=== PATIENT | female | born 1930 | race Caucasian/White ===

== ENCOUNTER → 2016-06-25 | Outpatient (CLI) | payer BC ==
[~2016-06-25] MED LIST: ALPR-411 PO; AMLO-110 PO; ASPI81TA28 PO; ATOR10TA82 PO; CYAN500T13 SL; FERROUS PO; GLC500 PO; HYDR-5688 PO; LEVO50TA6 PO; METO-478 PO; MIRT30TA3 PO; MULT-506 PO; PRT40 PO; PSYL48.59; ROPI2TAB6 PO; SERT-234 PO; TEMA30CA4 PO
[2016-06-25 19:17] LABS: BLOOD UREA NITROGEN 26 mg/dl (7-18); BUN/CREATININE RATIO 41.5 (10-20); CALCIUM 9.5 mg/dl (8.5-10.1); CARBON DIOXIDE 28 mmol/L (21-32); CHLORIDE 105 mmol/L (98-107); CREATININE 0.62 mg/dl (0.60-1.20); GLUCOSE 143 mg/dl (70-99); POTASSIUM 4.5 mmol/L (3.5-5.1); SODIUM 140 mmol/L (136-145)
[2016-06-25 19:28] LABS: PHOSPHORUS 3.8 mg/dl (2.5-4.9)
[2016-06-25 20:21] LABS: ESTIMATED AVERAGE GLUCOSE 143 mg/dl; HA1C FLAG Normal (Normal)
== END | disposition home or self-care (01) ==
LOC: C.LABMFLN 11:32
PROVIDERS: ATTEND Family Medicine
DX: E03.9 Hypothyroidism, unspecified (principal); E11.9 Type 2 diabetes mellitus without complications

== ENCOUNTER → 2017-01-17 | Outpatient (CLI) | payer BC ==
[2017-01-17 17:59] LABS: BASO % 0.2 %; BASO ABS # 0.01 K/uL (0-0.2); COMPLETE YES; EOS % 1.4 %; IG% 0.2 %; LYMPH % 25.1 %; MEAN CELL VOLUME 89.4 fL (80-100); MEAN CORPUSCULAR HEMOGLOBIN 27.3 pg (25-34); MEAN CORPUSCULAR HGB CONC 30.5 g/dl (32-36); MONO % 11.8 %; NEUT % 61.3 %; PLATELET COUNT 184 K/uL (130-400); RED BLOOD COUNT 4.36 M/uL (4.2-5.4); WHITE BLOOD COUNT 4.39 K/uL (4.8-10.8)
[2017-01-17 18:30] LABS: BLOOD UREA NITROGEN 16 mg/dl (7-18); BUN/CREATININE RATIO 27.3 (10-20); CALCIUM 9.4 mg/dl (8.5-10.1); CARBON DIOXIDE 31 mmol/L (21-32); CHLORIDE 106 mmol/L (98-107); CREATININE 0.59 mg/dl (0.60-1.20); GLUCOSE 93 mg/dl (70-99); POTASSIUM 3.9 mmol/L (3.5-5.1); SODIUM 138 mmol/L (136-145)
[2017-01-17 18:35] LABS: ALKALINE PHOSPHATASE 113 U/L (45-117); ALT/SGPT 19 U/L (12-78); AST/SGOT 17 U/L (15-37); CHOLESTEROL 101 mg/dl (0-200); CHOLESTEROL/HDL RATIO 1.8; HDL CHOLESTEROL 57 mg/dl; LDL CHOLESTEROL CALCULATED 19 mg/dl; TRIGLYCERIDES 125 mg/dl (0-150); VERY LOW DENSITY LIPOPROT CALC 25 mg/dl
[2017-01-18 06:06] LABS: ESTIMATED AVERAGE GLUCOSE 148 mg/dl; HA1C FLAG Normal (Normal)
== END | disposition home or self-care (01) ==
LOC: C.LABMFLN 12:02
PROVIDERS: ATTEND Family Medicine
DX: E11.9 Type 2 diabetes mellitus without complications (principal); E78.5 Hyperlipidemia, unspecified

== ENCOUNTER → 2017-04-18 | Outpatient (CLI) | payer BC ==
[~2017-04-18] MED LIST changes: +CYAN500T13 PO; -CYAN500T13 SL; +GLC/500 PO; +HYDR-4079 PO; +HYDR-4383 PO; -HYDR-5688 PO; -PSYL48.59; +PSYL48.59 PO; +SENNTAB13 PO
[2017-04-18 18:07] LABS: BLOOD UREA NITROGEN 25 mg/dl (7-18); CALCIUM 9.5 mg/dl (8.5-10.1); CARBON DIOXIDE 31 mmol/L (21-32); CREATININE 0.67 mg/dl (0.60-1.20); GLUCOSE 136 mg/dl (70-99); POTASSIUM 4.5 mmol/L (3.5-5.1); SODIUM 137 mmol/L (136-145)
[2017-04-18 18:13] LABS: CREATININE RANDOM URINE 81.2 mg/dl
[2017-04-18 18:18] LABS: PHOSPHORUS 3.5 mg/dl (2.5-4.9)
[2017-04-19 06:48] LABS: HEMOGLOBIN A1C 6.8 % (4.5-5.6)
== END | disposition home or self-care (01) ==
LOC: C.LABMFLN 15:55
PROVIDERS: ATTEND Family Medicine
DX: E11.9 Type 2 diabetes mellitus without complications (principal); E03.9 Hypothyroidism, unspecified

== ENCOUNTER → 2017-06-06 | Outpatient (CLI) | payer BC ==
[~2017-06-06] MED LIST changes: -GLC500 PO; -HYDR-4079 PO
--- NOTE | 2017-06-06 15:27 | DIAGNOSTIC IMAGING REPORT ---
CHEST-PA,LAT AND OBLIQUE VIEWS CLINICAL HISTORY: 86 years-old Female presenting with ABNORMAL CHEST XRAY. TECHNIQUE: PA and bilateral oblique views of the chest were obtained. COMPARISON: 05/24/2017. FINDINGS: Atherosclerosis of aortic arch. Cardiac silhouette enlarged. The site of clinical concern on the prior radiograph in the right midlung correlates with a rib shadow. No focal opacity. No large effusion or pneumothorax. Postsurgical changes of reverse total right shoulder arthroplasty. Slightly exaggerated thoracic kyphosis with suggestion of osteopenia. Post procedure changes of kyphoplasty suggested at the thoracolumbar region. Additionally, a compression deformity of a midthoracic vertebral bodies evident. This is unchanged from prior. Hiatal hernia. Cholecystectomy clips may be present. IMPRESSION: 1. The apparent right mid lung opacity likely correlates with a rib shadow. No convincing evidence of a focal infiltrate or nodule allowing for the sensitivity of radiography. 2. No convincing evidence of acute cardiopulmonary disease. 3. Osteopenia with compression deformity of a midthoracic vertebral body, unchanged. 4. Hiatal hernia. Electronically signed by: Reese Madden M.D. 06/06/2017 3:26 PM Dictated Date/Time: 06/06/2017 3:24 PM
--- NOTE | 2017-06-06 15:57 | DIAGNOSTIC IMAGING REPORT ---
CAROTID DOPPLER NECK ART CLINICAL HISTORY: 86 years-old Female presenting with VERTEBRAL ARTERY STENOSIS. TECHNIQUE: Real-time grayscale and color and spectral Doppler ultrasound imaging of the bilateral carotid arteries was performed. NASCET criteria was used in evaluating this study. COMPARISON: None. FINDINGS: Right: Common carotid: Atherosclerosis at the carotid bulb. Peak systolic velocity 61 cm/s. Internal carotid artery: Patent. Peak systolic velocity 66 cm/s. Systolic ratio: 1.1. External carotid artery: Patent. Peak systolic velocity 80 cm/s. Left: Common carotid: Patent. Peak systolic velocity 85 cm/s. Internal carotid artery: Patent. Peak systolic velocity 72 cm/s. Systolic ratio: 0.8. External carotid artery: Patent. Peak systolic velocity 68 cm/s. Bilateral antegrade flow within the vertebral arteries. No elevated peak systolic velocity or abnormal waveforms to suggest stenosis. Reference ranges: Stenosis measurements are compared to reference velocity parameters. Primary parameters: ICA peak systolic velocity (PSV) < 125 cm/s normal or indicating < 50% stenosis; ICA PSV 125-230 cm/s equivalent to 50-69% stenosis; ICA PSV > 230 cm/s equivalent to greater than or equal to 70% stenosis. Additional parameters: ICA PSV to common carotid artery PSV ratio < 2 normal or < 50% stenosis; 2-4 equates to 50-69% stenosis, > 4 equates to greater than or equal to 70% stenosis. Normal ICA end-diastolic velocity less than 40. Blood pressure: Not performed. IMPRESSION: 1. No hemodynamically significant stenosis seen within the carotid arteries. 2. No evidence of stenosis within the vertebral arteries. Electronically signed by: Reese Madden M.D. 06/06/2017 3:55 PM Dictated Date/Time: 06/06/2017 3:54 PM
--- NOTE | 2017-06-06 18:06 | ECHOCARDIOGRAM REPORT ---
*NOTICE TO RECEIVING [employer] This information is strictly Confidential and protected under [place] law. [place] law prohibits you from making any further disclosure of this information unless further disclosure is expressly permitted by the written consent of the person to whom it pertains or is authorized by law. A general authorization for the release of medical or other information is not sufficient for this purpose. Hospital accepts no responsibility if the information is made available to any other person, INCLUDING THE PATIENT. Interpretation Summary * Name: TABITHA MILLER Study Date: 06/06/2017 03:31 PM BP: 122/74 mmHg * Patient Location: [facility] HR: 71 * : 1930 (M/d/yyyy) Gender: Female Height: 62 in * Age: 86 yrs Ethnicity: [place] Weight: 190 lb * Ordering Physician: Shaunna West * Referring Physician: Shaunna West * Performed By: Rhona Ken [facility] * * Reason For Study: VERETEBRAL ARTERY STENOSIS * BSA: 1.9 m2 * -- Conclusions -- * 1. Normal left ventricular size and systolic function. Estimated EF 55-60%. No regional wall motion abnormalities. Septal motion consistent with bundle-branch block. Mild concentric left ventricular hypertrophy. There is severe asymmetric hypertrophy of the septal base. Type 1 diastolic dysfunction. * 2. The left atrium is mildly dilated. * 3. There is mild mitral regurgitation. * 4. Normal estimated right ventricular systolic pressure. * 5. No prior study available for comparison. Procedure Details * A complete two-dimensional transthoracic echocardiogram was performed (2D, M-mode, Doppler and color flow Doppler). Left Ventricle * Normal left ventricular size and systolic function. Estimated EF 55-60%. No regional wall motion abnormalities. Septal motion consistent with bundle-branch block. Mild concentric left ventricular hypertrophy. Type 1 diastolic dysfunction. Right Ventricle * Borderline right ventricular enlargement. Atria * The left atrium is mildly dilated. * Right atrial size is normal. * There is no evidence of atrial septal defect, but resolution does not allow assessment for a patent foramen ovale. * Hyper mobile inter atrial septum. Mitral Valve * There is mild mitral annular calcification. * There is no mitral valve stenosis. * There is mild mitral regurgitation. Tricuspid Valve * The tricuspid valve is not well visualized, but is grossly normal. * There is no tricuspid stenosis. * There is trace tricuspid regurgitation. Aortic Valve * The aortic valve is trileaflet. * No hemodynamically significant valvular aortic stenosis. * No aortic regurgitation is present. Pulmonic Valve * The pulmonary valve is inadequately visualized, but the Doppler data is adequate for interpretation. * There is no pulmonic valvular stenosis. * There is no significant pulmonary regurgitation. Great Vessels * The aortic root is normal size. * Ascending aorta of normal dimension Pericardium/Pleural * There is no pericardial effusion. Great Vessels * Normal inferior vena cava size and collapsability with sniff indicates a normal right atrial pressure of 3 mmHg MMode 2D Measurements and Calculations IVSd 1.2 cm LVIDd 3.5 cm LVIDs 2.3 cm LVPWd 1.2 cm IVS/LVPW 1.0 FS 34.2 % EDV(Teich) 50.3 ml ESV(Teich) 18.0 ml EF(Teich) 64.3 % EDV(cubed) 42.2 ml ESV(cubed) 12.0 ml EF(cubed) 71.5 % LV mass(C)d 137.6 grams LV mass(C)dI 73.6 grams/m\S\2 SV(Teich) 32.3 ml SI(Teich) 17.3 ml/m\S\2 SV(cubed) 30.2 ml SI(cubed) 16.1 ml/m\S\2 Ao root diam 3.0 cm Ao root area 6.9 cm\S\2 ACS 1.8 cm LA dimension 4.3 cm asc Aorta Diam 3.0 cm LA/Ao 1.5 LVOT diam 1.9 cm LVOT area 2.9 cm\S\2 LVAd ap4 33.3 cm\S\2 LVLd ap4 8.1 cm EDV(MOD-sp4) 109.9 ml EDV(sp4-el) 116.5 ml LVAs ap4 18.3 cm\S\2 LVLs ap4 7.1 cm ESV(MOD-sp4) 40.4 ml ESV(sp4-el) 40.2 ml EF(MOD-sp4) 63.2 % EF(sp4-el) 65.5 % LVAd ap2 28.2 cm\S\2 LVLd ap2 7.4 cm EDV(MOD-sp2) 86.0 ml EDV(sp2-el) 90.5 ml LVAs ap2 19.1 cm\S\2 LVLs ap2 6.8 cm ESV(MOD-sp2) 45.4 ml ESV(sp2-el) 45.2 ml EF(MOD-sp2) 47.3 % EF(sp2-el) 50.0 % LVLd %diff -8.63 % EDV(MOD-bp) 100.8 ml LVLs %diff -3.57 % ESV(MOD-bp) 41.8 ml EF(MOD-bp) 58.5 % SV(MOD-sp4) 69.5 ml SI(MOD-sp4) 37.1 ml/m\S\2 SV(MOD-sp2) 40.7 ml SI(MOD-sp2) 21.7 ml/m\S\2 SV(MOD-bp) 59.0 ml SI(MOD-bp) 31.6 ml/m\S\2 SV(sp4-el) 76.3 ml SI(sp4-el) 40.8 ml/m\S\2 SV(sp2-el) 45.3 ml SI(sp2-el) 24.2 ml/m\S\2 Doppler Measurements and Calculations MV E max ayo 73.3 cm/sec MV A max ayo 112.7 cm/sec MV E/A 0.65 MV P1/2t max ayo 74.2 cm/sec MV P1/2t 115.2 msec MVA(P1/2t) 1.9 cm\S\2 MV dec slope 188.6 cm/sec\S\2 MV dec time 0.30 sec Ao V2 max 121.7 cm/sec Ao max PG 5.9 mmHg Ao max PG (full) 3.1 mmHg JONNA(V,A) 2.0 cm\S\2 JONAN(V,D) 2.0 cm\S\2 LV V1 max PG 2.9 mmHg LV V1 max 84.7 cm/sec TR max ayo 228.6 cm/sec RVSP(TR) 23.9 mmHg RAP systole 3.0 mmHg
== END | disposition home or self-care (01) ==
LOC: C.ULTR 13:58
PROVIDERS: ATTEND Family Medicine
DX: R93.8 Abnormal findings on diagnostic imaging of other specified body structures (principal); R01.1 Cardiac murmur, unspecified; I65.09 Occlusion and stenosis of unspecified vertebral artery; M85.88 Other specified disorders of bone density and structure, other site; K44.9 Diaphragmatic hernia without obstruction or gangrene

== ENCOUNTER 2017-06-12 06:40 | Inpatient (IN) | payer BC, OTHER ==
[2017-05-24 13:27] VITALS: BMI 33.0
--- NOTE | 2017-05-24 14:09 | PAT Medication Instructions ---
Service Date May 24, 2017. Current Home Medication List Alprazolam (Xanax), 0.5 MG PO BID PRN for PRN Amlodipine (Norvasc), 5 MG PO QAM Aspirin (Aspirin Ec), 81 MG PO QAM Atorvastatin (Lipitor), 1 TAB PO QAM Cyanocobalamin (Vitamin B12 500MCG), 5,000 MCG PO QAM Hydrocodone/Acetaminophen ([place] 10/325 Tab), 1 TAB PO TID PRN for Pain Levothyroxine Sodium (Levothyroxine Sodium), 1 TAB PO QAM Metformin Hcl (Glucophage), 500 MG PO BID Metoprolol Succinate (Toprol Xl), 25 MG PO QAM Mirtazapine (Remeron), 30 MG PO HS Multivitamin (Multivitamin), 1 TAB PO QAM Pantoprazole (Pantoprazole Sodium), 40 MG PO QAM Psyllium (Metamucil), 1 DOSE PO QAM Ropinirole (Requip), 2 MG PO HS Sennosides-Docusate Sodium (Stool Softener Plus Laxat), 1-2 TAB PO BID Sertraline (Zoloft), 100 MG PO BID Temazepam (Restoril), 30 MG PO HS [Ferrous], 65 MG PO QAM Medication Instructions For Your Scheduled Surgery - Hold the following medications the night before surgery: Ropinirole (Requip), 2 MG PO HS - Hold the following medications the morning of surgery: Cyanocobalamin (Vitamin B12 500MCG), 5,000 MCG PO QAM Metformin Hcl (Glucophage), 500 MG PO BID Multivitamin (Multivitamin), 1 TAB PO QAM Psyllium (Metamucil), 1 DOSE PO QAM Sennosides-Docusate Sodium (Stool Softener Plus Laxat), 1-2 TAB PO BID [Ferrous], 65 MG PO QAM - Take the following medications the morning of surgery with a sip of water: Alprazolam (Xanax), 0.5 MG PO BID PRN for PRN (if needed) Amlodipine (Norvasc), 5 MG PO QAM Aspirin (Aspirin Ec), 81 MG PO QAM Atorvastatin (Lipitor), 1 TAB PO QAM Hydrocodone/Acetaminophen ([place] 10/325 Tab), 1 TAB PO TID PRN for Pain (if needed, can be taken up to four hours before surgery) Levothyroxine Sodium (Levothyroxine Sodium), 1 TAB PO QAM Metoprolol Succinate (Toprol Xl), 25 MG PO QAM Pantoprazole (Pantoprazole Sodium), 40 MG PO QAM Sertraline (Zoloft), 100 MG PO BID - Take the following medications as scheduled the night before surgery: Alprazolam (Xanax), 0.5 MG PO BID PRN for PRN (if needed) Metformin Hcl (Glucophage), 500 MG PO BID Mirtazapine (Remeron), 30 MG PO HS Sennosides-Docusate Sodium (Stool Softener Plus Laxat), 1-2 TAB PO BID Sertraline (Zoloft), 100 MG PO BID Temazepam (Restoril), 30 MG PO HS If you have any questions please call us at [phone] or [phone] or [phone]
[2017-05-24 15:31] LABS: BASO % 0.2 %; BASO ABS # 0.01 K/uL (0-0.2); EOS ABS # 0.05 K/uL (0-0.5); HEMATOCRIT 39.3 % (37-47); HEMOGLOBIN 12.3 g/dL (12.0-16.0); IG# 0.01 K/uL (0.00-0.02); MEAN CELL VOLUME 86.9 fL (80-100); MEAN CORPUSCULAR HEMOGLOBIN 27.2 pg (25-34); MEAN CORPUSCULAR HGB CONC 31.3 g/dl (32-36); MEAN PLATELET VOLUME 10.7 fL (7.4-10.4); MONO % 9.6 %; MONO ABS # 0.48 K/uL (0.11-0.59); NEUT ABS # 3.24 K/uL (1.4-6.5); PLATELET COUNT 206 K/uL (130-400); RED CELL DISTRIBUTION WIDTH CV 15.4 % (11.5-14.5); RED CELL DISTRIBUTION WIDTH SD 49.1 fL (36.4-46.3); WHITE BLOOD COUNT 4.99 K/uL (4.8-10.8)
[2017-05-24 15:40] LABS: PTT PATIENT 24.9 SECONDS (21.0-31.0)
--- NOTE | 2017-05-24 15:52 | DIAGNOSTIC IMAGING REPORT ---
CHEST 2 VIEWS ROUTINE CLINICAL HISTORY: Preoperative chest COMPARISON STUDY: 09/02/2015 FINDINGS: The heart is enlarged. There is an air-containing retrocardiac opacity consistent with a hiatal hernia. There is no failure. There is no focal pulmonary consolidation. There is a subtle 14 mm right midlung zone opacity. A repeat study with shallow PA obliques is recommended to differentiate a summation from a true parenchymal abnormality. There are no pleural effusions. The bones are osteopenic. Multiple thoracic compression deformities are visualized.[ IMPRESSION: Subtle 14 mm right midlung zone opacity. A repeat study to include shallow PA obliques is recommended to differentiate a summation from intraparenchymal abnormality. Electronically signed by: Nadeem Hurtado M.D. 05/24/2017 3:50 PM Dictated Date/Time: 05/24/2017 3:47 PM
--- NOTE | 2017-06-11 16:49 | HISTORY & PHYSICAL EXAMINATION ---
DATE OF ADMISSION: 06/12/2017 CHIEF COMPLAINT: Chronic left shoulder pain. HISTORY OF PRESENT ILLNESS: This is an 86-year-old female patient of Dr. Gaona'jaleel complaining of chronic rotator cuff arthropathy. She has failed conservative treatment and has elected to proceed with a right reversed total shoulder arthroplasty. PAST MEDICAL HISTORY: Hypertension, hypercholesterolemia, diabetes mellitus, hypothyroidism, osteoarthritis, sciatica, acid reflux, hiatal hernia, obesity. SOCIAL HISTORY: Nonsmoker, nondrinker. PAST SURGICAL HISTORY: Right shoulder replacement, both knee surgeries, hip replacement, both eye cataract surgery and ankle fusion, gallbladder surgery. REVIEW OF SYSTEMS: The patient complains of chronic left shoulder pain and decreased strength, otherwise denies any shortness of breath, chest pain, nausea, vomiting or any other joint complaints. FAMILY HISTORY: Noncontributory. MEDICATIONS: 1. Remeron 30 mg at bedtime. 2. Metformin 500 mg b.i.d. 3. Multivitamin daily. 4. Amlodipine 5 mg daily. 5. Temazepam 30 mg at bedtime p.r.n. 6. Pantoprazole 40 mg daily. 7. [place] as needed, that will be 7.5/325. 8. Aspirin 81 mg daily. 9. Requip 2 mg at bedtime. 10. Atorvastatin 10 mg daily. 11. Sertraline 100 mg b.i.d. 12. Xanax 0.5 mg b.i.d. 13. Metoprolol 25 mg b.i.d. 14. Ferrous sulfate 325 daily. 15. Vitamin B12 5000 mcg sublingual daily. 16. Gabapentin 100 mg b.i.d. 17. Synthroid 50 mcg daily. ALLERGIES: INCLUDE PERCOCET. PHYSICAL EXAMINATION: GENERAL: Well-developed, well-nourished 86-year-old female, in no acute distress. She is alert and oriented x3 and pleasant. HEENT: Normocephalic, atraumatic. Extraocular motions are intact. Pupils are equal and reactive to light. HEART: Regular rate and rhythm. No murmurs appreciated. LUNGS: Clear. ABDOMEN: Soft and nontender. Bowel sounds are present. EXTREMITIES: Left shoulder reveals painful range of motion with 4/5 strength. She has positive impingement maneuvering. NEUROLOGIC: Neurovascularly, she is intact in her left upper extremity. DIAGNOSES: Left shoulder chronic rotator cuff arthropathy. She has a history of hypertension, hypercholesterolemia, diabetes mellitus, hypothyroidism, osteoarthritis, sciatica, acid reflux, hiatal hernia, obesity. PLAN: The patient was advised of her diagnosis. Indications, risks, benefits, postop course have all been reviewed. The patient wished to proceed with a left reverse total shoulder arthroplasty. Necessary consent forms, preoperative testing and clearances will be obtained.
[2017-06-12] VITALS (8 sets, daily range): BP systolic 102–133; BP diastolic 58–80; PULSE 77–94; TEMP 36.4–37.1; O2SAT 91–97; Ht 160 cm; Wt 86.7 kg
[~2017-06-12] VITALS: Ht 160 cm; Wt 86.7 kg
[~2017-06-12 06:40] MED LIST changes: +ACETAMINOPHEN 500 MG TAB PO SCH; +CEFAZOLIN 2000MG IV PUSH 15 ML IV SCH; +CeleBREX 200 MG CAP PO SCH; +DEXAMETHASONE 4 MG TAB PO SCH; +FAMOTIDINE 20 MG TAB PO SCH; +GABAPENTIN 300 MG CAP PO SCH; +LACTATED RINGER'S 1000ML 1,000 ML IV SCH; +ROPIVACAINE 0.5% 5 MG/ML 30 ML VIAL ONE
--- NOTE | 2017-06-12 07:07 | History & Physical Bridge Note ---
H&P Re-Evaluation Bridge Note: I have examined the patient, reviewed the History & Physical and in the interval since the performance of the History & Physical I have noted the following changes of clinical significance: No changes noted
[2017-06-12] MEDS ORDERED: FENTANYL CITRATE INJ 50 MCG/1 ML 2 ML VIAL ONE (07:23)
[2017-06-12] MEDS ORDERED: MIDAZOLAM HCL 1 MG/ML 2ML VIAL ONE (07:23)
[2017-06-12] MEDS ORDERED: ROCURONIUM BROMIDE 10 MG/ML 5 ML VIAL IV ONE ×2 (07:23→09:51)
[2017-06-12] MEDS ORDERED: LIDOCAINE HCL 2% 2 ML VIAL (20MG/ML) ONE (07:23)
[2017-06-12] MEDS ORDERED: PROPOFOL IV EMULSION 10 MG/ML 20 ML VIAL IV ONE (07:23)
[2017-06-12] MEDS ORDERED: BACITRACIN 50000 UNIT VIAL ONE (07:26)
[2017-06-12] MEDS ORDERED: ONDANSETRON INJ 2 MG/ML 2 ML VIAL ONE (08:50)
[2017-06-12] MEDS ORDERED: ETOMIDATE 2 MG/ML 20 ML VIAL IV ONE (08:50)
[2017-06-12] MEDS ORDERED: KETOROLAC TROMETHAMINE 15 MG/ML VIAL IV. PRN ×2 (09:15→11:15)
[2017-06-12] MEDS ORDERED: ONDANSETRON INJ 2 MG/ML 2 ML VIAL IV PRN ×2 (09:15→11:15)
[2017-06-12] MEDS ORDERED: ATROPINE SULFATE 0.1 MG/ML 5ML SYR IV PRN (09:15)
[2017-06-12] MEDS ORDERED: HYDROmorphone INJ 2 MG/ML SYR/VIAL IV PRN (09:15)
--- NOTE | 2017-06-12 10:18 | [facility] Post Operative Brief Note ---
Immediate Operative Summary Operative Date Jun 12, 2017. Pre-Operative Diagnosis Left shoulder chronic rotator cuff tendinopathy and arthropathy end stage djd glenohumeral Post-Operative Diagnosis same Procedure(s) Performed left reversed total shoulder replacement,biceps tenodesis Surgeon Dr. Gaona Brick Stacker Surgeon(s) Jonny Rubin PA-C Estimated Blood Loss 75 Findings Consistent with Post-Op Diagnosis Specimens bone Drains 2 hemovac Anesthesia Type General Regional Complication(s) none Disposition Disposition: Recovery Room / PACU
[2017-06-12] MEDS ORDERED: PHENYLEPHRINE HCL INJ 10 MG/ML VIAL ONE (10:25)
[2017-06-12] MEDS ORDERED: NEOSTIGMINE METHYLSULFATE 5 MG/5 ML SYR ONE (10:26)
[2017-06-12] MEDS ORDERED: GLYCOPYRROLATE INJ 0.2 MG/ML VIAL ONE (10:26)
[2017-06-12] MEDS ORDERED: ACETAMINOPHEN 325 MG TAB PO PRN (11:15)
[2017-06-12] MEDS ORDERED: ZOLPIDEM TARTRATE 5 MG TAB PO PRN (11:15)
[2017-06-12] MEDS ORDERED: METOCLOPRAMIDE HCL INJ 5 MG/ML 2 ML VIAL IV PRN (11:15)
[2017-06-12] MEDS ORDERED: BISACODYL 10 MG SUPP PR PRN (11:15)
[2017-06-12] MEDS ORDERED: ALPRAZOLAM 0.5 MG TAB PO PRN (11:15)
[2017-06-12] MEDS ORDERED: SOD PHOSPHATE/SOD BIPHOSPHATE ENEMA 132 ML BTL PR PRN (11:15)
[2017-06-12] MEDS ORDERED: NALOXONE HCL 0.4 MG/1 ML VIAL/CARP IV PRN (11:15)
[2017-06-12] MEDS ORDERED: MAGNESIUM HYDROXIDE SUSP 30 ML UDC PO PRN (11:15)
[2017-06-12] MEDS ORDERED: GLUCOSE 40% GEL 15 GM TUBE PO PRN (12:00)
[2017-06-12] MEDS ORDERED: GLUCOSE 10 TABS/TUBE PO PRN (12:00)
[2017-06-12] MEDS ORDERED: DEXTROSE 50% 50 ML SYR IV PRN (12:00)
[2017-06-12] MEDS ORDERED: GLUCAGON FOR INJ 1 MG VIAL SQ PRN (12:00)
--- NOTE | 2017-06-12 12:29 | DIAGNOSTIC IMAGING REPORT ---
LEFT SHOULDER 2 VIEWS CLINICAL HISTORY: Postoperative examination. FINDINGS: 2 portable views of the left shoulder are obtained. The skeletal structures are osteopenic. A left shoulder arthroplasty is in near anatomic alignment. No acute fracture is seen. Mild productive change is noted at the acromioclavicular joint. There are expected postoperative findings overlying the left shoulder including skin clips, a surgical drain, subcutaneous gas, and soft tissue swelling. Atelectasis is noted at the left lung base. The left upper lung appears clear as visualized. IMPRESSION: Expected postoperative findings status post left shoulder arthroplasty. No fracture is seen. Electronically signed by: Sage Diaz M.D. 06/12/2017 12:28 PM Dictated Date/Time: 06/12/2017 12:26 PM
--- NOTE | 2017-06-12 12:29 | Anesthesiology Progress Note ---
Anesthesia Post Op Note Date & Time Jun 12, 2017 at 12:28 Vital Signs Pain Intensity: 0 Vital Signs Past 12 Hours Date Time Temp Pulse Resp B/P (MAP) Pulse Ox O2 Delivery O2 Flow Rate FiO2 06/12/17 11:53 78 16 06/12/17 11:53 78 16 92 06/12/17 11:51 106/58 06/12/17 11:48 77 16 92 06/12/17 11:48 77 16 06/12/17 11:46 108/58 06/12/17 11:43 80 17 06/12/17 11:43 80 17 91 06/12/17 11:41 108/61 06/12/17 11:38 77 20 06/12/17 11:38 76 20 91 06/12/17 11:37 75 19 06/12/17 11:37 74 19 92 06/12/17 11:36 119/60 06/12/17 11:32 74 18 06/12/17 11:32 74 18 91 06/12/17 11:31 113/60 06/12/17 11:30 36.3 79 20 113/60 (70) 93 Nasal Cannula 2 06/12/17 11:27 88 24 94 06/12/17 11:27 86 24 06/12/17 11:26 114/62 06/12/17 11:22 79 20 92 06/12/17 11:22 82 20 06/12/17 11:21 127/65 06/12/17 11:20 84 20 89 06/12/17 11:20 84 20 06/12/17 11:16 136/67 06/12/17 11:15 87 16 95 06/12/17 11:15 89 16 06/12/17 11:11 140/77 06/12/17 11:10 90 21 97 06/12/17 11:10 90 21 06/12/17 11:06 147/74 06/12/17 11:05 90 19 96 06/12/17 11:05 89 19 06/12/17 11:01 153/80 06/12/17 11:00 100 95 06/12/17 11:00 100 06/12/17 11:00 36.0 101 16 153/80 (106) 95 Oxymask 10 06/12/17 07:11 36.5 78 20 118/71 97 Room Air Notes Mental Status: alert / awake / arousable, participated in evaluation Pt Amnestic to Procedure: Yes Nausea / Vomiting: adequately controlled Pain: adequately controlled Airway Patency, RR, SpO2: stable & adequate BP & HR: stable & adequate Hydration State: stable & adequate Anesthetic Complications: no major complications apparent
[2017-06-12] MEDS ORDERED: LARYING-O-JET KIT (LTA) ONE (13:08)
--- NOTE | 2017-06-12 14:10 | Medical Consult ---
Consultation Date of Consultation: Jun 12, 2017. Attending Physician: Edu Gaona M.D. Reason for Consultation: Medical management History of Present Illness This is an 86 yo F with PMHx of HTN, HLD, DM II, hypothyroidism, osteoarthritis , sciatic, GERD, hiatal hernia, and obesity with BMI 33.9 who presented for elective R reverse total shoulder arthroplasty by Dr. Gaona on 06/12/17. She does report hx of chronic back pain which she has been seeing Dr. Hidalgo and had numerous injections, as well as [facility] for acupuncture which she believes is making a large improvement. She reports doing very well currently. There is some slight numbness in her left fingers but no pain in the shoulder. Pt tolerated a diet without difficulty, and has had a BM today. She lives at home alone, and plans to participate in outpatient PT/OT at [facility] as she has done PT there in the past. Past Medical/Surgical History Medical Problems: (1) Depression (2) Osteoarthritis (3) Diab Elise Wo Compl, Type Ii Or Unspec Type, Not Uncntrld (4) DJD of right shoulder (5) SERGE (generalized anxiety disorder) (6) History of GI bleed (7) Hyperlipidemia Nec/Nos (8) Hypertension Nos (9) Hypothyroidism Surgical Problems: (1) H/O ankle fusion (2) History of arthroplasty of both knees (3) History of cholecystectomy (4) History of total right hip arthroplasty (5) S/P cholecystectomy (6) S/P hip replacement (7) S/P total knee replacement (8) Status post reverse arthroplasty of right shoulder Family History Cancer Heart disease Hypertension Social History Smoking Status: Never Smoker Alcohol Use: none Drug Use: none Marital Status: Housing Status: lives alone Occupation Status: retired Allergies Coded Allergies: Oxycodone (Verified Adverse Reaction, Intermediate, CONFUSION, 06/12/17) Current Inpatient Medications Current Inpatient Medications Medications (Trade) Dose Ordered Sig/Rudy Route Start Time Stop Time Status Last Admin Dose Admin Ondansetron HCl (Zofran Inj) 4 mg ONE PRN IV 06/12/17 09:15 06/12/17 14:15 Atropine Sulfate (Atropine Sulfate 0.1mg/ml Inj) 0.5 mg Q1M PRN IV 06/12/17 09:15 06/12/17 14:15 Ketorolac Tromethamine (Toradol Inj) 15 mg ONE PRN IV. 06/12/17 09:15 06/12/17 14:15 Hydromorphone HCl (Dilaudid Inj) 0.25 mg Q5M PRN IV 06/12/17 09:15 06/12/17 14:15 Alprazolam (Xanax Tab) 0.5 mg BID PRN PO 06/12/17 11:15 07/12/17 11:14 Amlodipine Besylate (Norvasc Tab) 5 mg QAM PO 06/13/17 09:00 07/13/17 08:59 Aspirin (Ecotrin Tab) 81 mg QAM PO 06/13/17 09:00 07/13/17 08:59 Atorvastatin Calcium (Lipitor Tab) 10 mg QAM PO 06/13/17 09:00 07/13/17 08:59 Cyanocobalamin (Vitamin B-12 Tab) 5,000 mcg DAILY PO 06/13/17 09:00 07/13/17 08:59 Acetaminophen/ Hydrocodone Bitart ([place] 10/325 Tab) 1 tab Q4HWA PRN PO 06/12/17 11:15 06/26/17 11:14 Levothyroxine Sodium (Synthroid Tab) 50 mcg DAILYBB PO 06/13/17 06:00 07/13/17 05:59 Metoprolol Succinate (Toprol Xl Tab) 25 mg QAM PO 06/13/17 09:00 07/13/17 08:59 Mirtazapine (Remeron Tab) 30 mg HS PO 06/12/17 21:00 07/12/17 20:59 Multivitamins (Multivitamin Tab) 1 tab QAM PO 06/13/17 09:00 07/13/17 08:59 Pantoprazole Sodium (Protonix Tab) 40 mg QAM PO 06/13/17 09:00 07/13/17 08:59 Ropinirole HCl (Requip Tab) 2 mg HS PO 06/12/17 21:00 07/12/17 20:59 Senna/Docusate Sodium (Senokot S Tab) `1-2 tabs for CONSTIPAT... BID PRN PO 06/12/17 21:00 07/12/17 20:59 Sertraline HCl (Zoloft Tab) 100 mg BID PO 06/12/17 21:00 07/12/17 20:59 Temazepam (Restoril Cap) 30 mg HS PO 06/12/17 21:00 07/12/17 20:59 Psyllium Hydrophilic Mucilloid (Metamucil Powder) 1 pkt QAM PO 06/13/17 09:00 07/13/17 08:59 Ferrous Sulfate (Feosol Tab) 325 mg DAILY PO 06/13/17 09:00 07/13/17 08:59 Ketorolac Tromethamine (Toradol Inj) 15 mg Q6 PRN IV. 06/12/17 11:15 06/13/17 11:14 Diphenhydramine HCl (Benadryl Cap) 25 mg Q8 PRN PO 06/12/17 11:15 07/12/17 11:14 Zolpidem Tartrate (Ambien Tab) 5 mg HSZ PRN PO 06/12/17 11:15 07/12/17 11:14 Metoclopramide HCl (Reglan Inj) 10 mg Q6H PRN IV 06/12/17 11:15 07/12/17 11:14 Ondansetron HCl (Zofran Inj) 4 mg Q6H PRN IV 06/12/17 11:15 07/12/17 11:14 Potassium Chloride 10 meq/ Sodium Chloride 1,005 ml @ 100 mls/hr Q10H3M IV 06/12/17 13:30 06/13/17 12:00 Acetaminophen (Tylenol Tab) 650 mg Q8 PRN PO 06/12/17 11:15 07/12/17 11:14 Morphine Sulfate (MoRPHine SULFATE INJ) 2 mg Q2H PRN IV 06/12/17 11:15 06/26/17 11:14 Naloxone HCl (Narcan Inj) 0.1 mg Q2M PRN IV 06/12/17 11:15 07/12/17 11:14 Magnesium Hydroxide (Milk Of Magnesia Susp) 30 ml Q6H PRN PO 06/12/17 11:15 07/12/17 11:14 Bisacodyl (Dulcolax Supp) 10 mg DAILY PRN AK 06/12/17 11:15 07/12/17 11:14 Sodium Biphosphate/ Sodium Phosphate (Fleet Enema) 132 ml DAILY PRN AK 06/12/17 11:15 07/12/17 11:14 Cefazolin Sodium 2000 mg/Syringe 15 ml @ 3.75 mls/ min Q8H IV 06/12/17 16:00 06/13/17 00:03 Insulin Aspart (novoLOG ASPART) SLIDING SCALE G... ACHS SC 06/12/17 17:15 07/12/17 17:14 Glucose (Glucose 40% Gel) 15-30 GRAMS 15 GRAMS... UD PRN PO 06/12/17 12:00 07/12/17 11:59 Glucose (Glucose Chew Tab) 4-8 Tablets 4 Tabl... UD PRN PO 06/12/17 12:00 07/12/17 11:59 Dextrose (Dextrose 50% 50ML Syringe) 25-50ML OF 50% DW IV FOR... UD PRN IV 06/12/17 12:00 07/12/17 11:59 Glucagon (Glucagon Inj) 1 mg UD PRN SQ 06/12/17 12:00 07/12/17 11:59 Review of Systems Constitutional: No fever, sweats or chills Eyes: No diplopia, no worsening or blurred vision ENT: normal hearing, no trouble swallowing Respiratory: No cough, sputum, dyspnea at rest or on exertion Cardiovascular: No chest pain, tightness or palpitations Abdomen: No pain, nausea, vomiting, diarrhea or constipation Musculoskeletal: No joint pain, calf pain, swelling Neurologic: No weakness, numbness/tingling, uses a cane at baseline Psychiatric: No anxiety or depression Skin: No rash or itch Physical Exam Date Time Temp Pulse Resp B/P (MAP) Pulse Ox O2 Delivery O2 Flow Rate FiO2 06/12/17 13:17 87 16 125/69 (87) 94 Nasal Cannula 2.0 06/12/17 12:49 77 17 102/58 (73) 94 Nasal Cannula 2.0 06/12/17 12:15 37.1 84 18 125/66 (85) 94 Nasal Cannula 2.0 06/12/17 12:15 Nasal Cannula 2.0 06/12/17 12:15 Nasal Cannula 2.0 06/12/17 11:53 78 16 06/12/17 11:53 78 16 92 06/12/17 11:51 106/58 06/12/17 11:48 77 16 92 4/25/18 11:48 77 16 06/12/17 11:46 108/58 06/12/17 11:43 80 17 06/12/17 11:43 80 17 91 06/12/17 11:41 108/61 06/12/17 11:38 77 20 06/12/17 11:38 76 20 91 06/12/17 11:37 75 19 06/12/17 11:37 74 19 92 06/12/17 11:36 119/60 06/12/17 11:32 74 18 06/12/17 11:32 74 18 91 06/12/17 11:31 113/60 06/12/17 11:30 36.3 79 20 113/60 (70) 93 Nasal Cannula 2 06/12/17 11:27 88 24 94 06/12/17 11:27 86 24 06/12/17 11:26 114/62 06/12/17 11:22 79 20 92 06/12/17 11:22 82 20 06/12/17 11:21 127/65 06/12/17 11:20 84 20 89 06/12/17 11:20 84 20 06/12/17 11:16 136/67 06/12/17 11:15 87 16 95 06/12/17 11:15 89 16 06/12/17 11:11 140/77 06/12/17 11:10 90 21 97 06/12/17 11:10 90 21 06/12/17 11:06 147/74 06/12/17 11:05 90 19 96 06/12/17 11:05 89 19 06/12/17 11:01 153/80 06/12/17 11:00 100 95 06/12/17 11:00 100 06/12/17 11:00 36.0 101 16 153/80 (106) 95 Oxymask 10 06/12/17 07:11 36.5 78 20 118/71 97 Room Air General: awake, alert, no apparent distress Head: Normocephalic, atraumatic ENT: PERRL, EOMI, no pharyngeal exudate, mucous membranes moist Chest: Clear to auscultation, on room air, no adventitious breath sounds Cardiac: Regular rate and rhythm, + systolic murmur RUSB, no JVD, normal peripheral pulses, good capillary refill Abdominal: NABS x 4 quadrants, soft, nontender to palpation, no rebound, guarding or tenderness Extremities: Left shoulder in sling, dressing c/d/i, ice pack overlying shoulder. Otherwise normal inspection, no peripheral edema or erythema, calfs nontender to palpation Psych: Normal mood and affect Neuro: AAO x 3, strength intact bilaterally and related 5/5, no motor deficits, speech is clear, no peripheral sensory deficits Laboratory Results Last 24 Hours Test 06/12/17 06:59 06/12/17 11:06 06/12/17 12:34 Bedside Glucose 128 mg/dl 168 mg/dl 185 mg/dl Assessment & Plan This is an 86 yo F with PMHx of HTN, HLD, DM II, hypothyroidism, osteoarthritis , sciatic, GERD, hiatal hernia, and obesity with BMI 33.9 who presented for elective R reverse total shoulder arthroplasty by Dr. Gaona on 06/12/17. S/p R reverse shoulder arthroplasty - Pain management, bowel regimen, dvt ppx per primary team - PT/OT - pt plans for [facility] as outpatient in [place] as this is close to her family - Maintain comfort with sling per primary team HTN - Continue antihypertensives: amlodipine 5 mg QAM, metoprolol succ 50 mg QAM, asa 81 mg daily HLD - Cont atorvastatin 10 mg daily DM II - ISS with key james, last A1C = 6.8 on 04/18 Depression Anxiety Insomnia - Continue sertraline 100 mg BID, temazepam 30 mg HS, xanax prn Hypothyroidism - Cont levothyroxine Chronic Back Pain - Continue acupuncture as an outpatient - follows with Dr. Lomeli as well as Dr. Hidalgo CODE STATUS: Full code Disposition; from home, lives alone, discharge per primary team Thank you for involving us in the consultation of Ms. Bhatti, at this time medicine will sign off, please do not hesitate to call with questions or concerns. I personally interviewed and examined the patient. I agree with history of present illness and physical exam mentioned above, I also performed my own history taking and examination. Past medical history and review of system has been obtained by myself I reviewed all pertinent labs and studies Reviewed current medications I discussed and formulated of the assessment and plan mentioned above. Please refer to the Summary mentioned below. This is an 86 yo F with PMHx of HTN, HLD, DM II, hypothyroidism, osteoarthritis , sciatic, GERD, hiatal hernia, and obesity with BMI 33.9 who presented for elective R reverse total shoulder arthroplasty by Dr. Gaona on 06/12/17. 86-year-old female with past medical history of dyslipidemia, hypertension, diabetes mellitus type 2 and hypothyroidism who has severe osteoarthritis failed outpatient conservative management presented to the hospital for an elective orthopedic procedure S/p R reverse shoulder arthroplasty, procedure went uneventful, patient has no complaints Medically stable, please call us tomorrow if labs appears to be abnormal or if you have any question, otherwise will sign off the patient and will only see him as needed General Appearance: not in acute distress Eyes: normal Sclerae, extraocular muscle intact ENT: hearing grossly normal Neck: supple Respiratory/Chest: normal air entry bilateral ,no respiratory distress, no accessory muscle use Cardiovascular: regular rate, rhythm, no murmur Abdomen: non tender, soft, no masses Extremities: no edema musculoskeletal: no significant swelling or inflammation in any joint Neurologic/Psychiatric: Awake alert oriented times place and person moves all extremities sensation intact cranial nerves II-12 appear to be intact Skin: normal color, warm/dry, no rash Daylin Moody MD, [facility]
[2017-06-12] MEDS: INSULIN ASPART 100 UNITS/ML 3 ML PEN SC SCH ×3 (14:32→21:36)
[2017-06-12] MEDS: CEFAZOLIN IV 2,000 MG in SYRINGE 0 ML IV SCH ×2 (15:55→22:58)
--- NOTE | 2017-06-12 16:29 | [facility] Operative Report ---
Operative Report Operative Date Jun 12, 2017. 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 Gaona Dredge Pump Operator Surgeon(s) Jonny Rubin PA-C Estimated Blood Loss 75 Findings Rotator cuff tendinopathy marked biceps tendinopathy some bone loss glenoid chronic synovitis good humeral joint chronic subacromial bursitis end-stage glenohumeral osteoarthritis Specimens a: left humeral head Drains 2 hemovac Anesthesia Regional block and general Complication(s) None Disposition Recovery Room / PACU Indications 86-year-old female with history of successful right reverse shoulder replacement doing excellently. She has severe DJD rotator cuff tendinopathy left shoulder and wants proceed with reverse replacement on the shoulder. Description of Procedure The patient was taken to the operating room and anesthetized under regional block and general anesthetic. The patient was positioned on the operating table in a 30 beachchair position with a towel roll under the medial border of the left scapula. The arm was draped free to be able to manipulate the shoulder as needed. The left upper extremity was prepped and draped in usual sterile fashion. Exam demonstrated [id number] crepitation 130 forward elevation 90 abduction external rotation to 70. An anterior deltopectoral approach was performed. A longitudinal incision was made in the deltopectoral interval. The skin was incised sharply. Subcutaneous flaps were elevated off the fascia. The cephalic vein was dissected out and retracted lateral with the deltoid. The clavipectoral fascia was divided at the lateral margin of the conjoined tendon and extended up to the CA ligament. The following findings were noted: There was tendinopathy and thinning of the rotator cuff but still intact rotator cuff. There was marked tenosynovitis of the biceps tendon with a very large collection of synovitis around the biceps. There is chronic thickened subacromial bursitis and a large bursal fluid collection overlying the rotator cuff. The upper centimeter of the pectoralis was released for inferior exposure. The biceps tendon was tenodesed to the pectoralis tendon with #2 FiberWire. The proximal biceps was resected. The subscapularis tendon was taken down off the lesser tuberosity using a subperiosteal dissection. A #1 Vicryl traction suture was placed into the free end of the subscapularis tendon and capsule. The subscapular muscle fibers were split longitudinally at the level of the circumflex vessels. The circumflex vessels were identified and tied off with silk ties and divided laterally. A Kitner elevator was used to free up the inferior fibers of the subscapularis off of the capsule. The axillary nerve was identified with a tug test and protected with a blunt Maryan retractor between the nerve and the capsule. The subscapularis tendon was then taken down off of the lesser tuberosity subperiosteally and subperiosteal dissection was performed along the neck of the humerus as the arm is gradually externally rotated exposing the humeral head. Retractors were readjusted and the inferior osteophytes were all resected using an artist chisel. A Gonzales elevator was used to assist in releasing the capsule of the neck of the humerus. The capsule was divided with Main scissors down to the glenoid released off the anterior glenoid and the rotator interval was released to meet the capsular release and a 360 release of the subscapularis was accomplished. A Fukuda retractor was placed into the joint retracting the humeral head posterior. Glenoid findings demonstrated complete absence of articular cartilage with some bone loss with concentric wear. There was a large osteophyte on the entire anterior to anterior inferior glenoid which had some mobility to it but was attached to the capsule. The osteophyte was carefully dissected out from the capsule using retro-cautery on bone and then the osteophyte was resected with a rongeur. The labrum and biceps tendon was resected. Biceps tendon findings demonstrated marked widening tendinopathy splitting with severe tendinopathy and chronic posterior superior labral tearing. an anterior-inferior and posterior inferior capsular release were performed with electrocautery and a Gonzales elevator on bone with the axillary nerve protected inferiorly by the retractor. Attention was then taken to the humeral preparation. The cutting guide was placed into the humeral head. It was positioned at 20 of retroversion. Oscillating saw was used to resect the humeral head giving the cut above the level of the posterior rotator cuff insertion site. The humerus was then prepared for the stem. I used the ascend flex stem from [employer]. The sizing broaches were used followed by trial broaches up to a size 5 the long, Which had the appropriate fit and fill. The appropriate sized cup protector was placed. The humerus was then retracted posterior to the glenoid. The glenoid was sized for a 25 mm baseplate. The guide for the baseplate was positioned in a 10 inferior tilt and the central drill hole was made. The reamer for the 25 mm hydroxyapatite- coated baseplate was used. The central drill was widened for the peg. The standard 25 mm baseplate was impacted into position. The base plate was transfixed with superior and inferior locking screws and anterior and posterior compression screws with stable fixation. The fan reamer was used for the 36 millimeter glenoid sphere. After irrigation the 36 glenoid sphere was impacted onto the baseplate and the screw was tightened. Attention was taken back to the humerus. The cut protector was removed and the +0 3.5 mm high offset humeral tray trial was assembled to the trial stem rotated appropriately to get bony coverage and then screwed in position. A trial reduction was performed. A +6 mm trial insert demonstrated good stability and no shuck. The trials were removed. 3 drill holes are made into the harder bone in the bicipital groove area and 3 #5 FiberWire sutures were placed transosseously. The canal was irrigated with antibiotic solution with bacitracin. The final component was assembled. The final component was 5B longstem +0 high offset humeral tray 36+ 6 humeral insert. This was then impacted into the humerus with a tight press- fit. It was reduced to the glenoid sphere. Stability was verified. Subscapularis was repaired with the #5 FiberWire sutures using Sean-Lul suture technique. Lateral row soft tissue repair was performed with #2 FiberWire [id number] sutures. The pectoralis was repaired with #2 FiberWire [id number] sutures reinforcing the biceps tendon tenodesis. The arm was taken through a range of motion which demonstrated 120 forward elevation 70 external rotation 90 abduction. The implant was stable through the range of motion tested. The wound was copiously irrigated. 2 Hemovac drains were placed. The deltopectoral interval was closed with [id number] #1 Vicryl sutures. The subcutaneous tissues were closed with 2-0 Vicryl sutures. The skin was closed with lety. Sterile dressings were applied and a shoulder immobilizer. Jonny JEAN BAPTISTE my physician broker assistant assisted in the procedure to the entire procedure including patient positioning arm positioning prepping and draping soft tissue retraction instrument management suture management and performed the subcutaneous and skin closure and will participate in the postoperative care of the patient. I attest to the content of the Intraoperative Record and any orders documented therein. Any exceptions are noted below.
[2017-06-12] MEDS: POTASSIUM CHLORIDE INJ 10 MEQ in SODIUM CHLORIDE 0.9% 1000ML 1,000 ML IV SCH (17:36)
[2017-06-12] MEDS: ROPINIROLE HCL 1 MG TAB PO SCH (20:29)
[2017-06-12] MEDS ORDERED: DOCUSATE SODIUM/SENNA 50/8.6MG TAB PO PRN (21:00)
[2017-06-12] MEDS: SERTRALINE HCL 100 MG TAB PO SCH (21:25)
[2017-06-12] MEDS: MIRTAZAPINE TAB 15 MG TAB PO SCH (21:26)
[2017-06-12] MEDS: TEMAZEPAM 15 MG CAP PO SCH (21:31)
[2017-06-12] MEDS ORDERED: NURSING VERBAL MED ORDER ONE (22:00)
[2017-06-12] MEDS: HYDROCODONE/ACETAMI 10/325 TAB PO PRN (22:55)
[2017-06-13] VITALS (7 sets, daily range): BP systolic 94–128; BP diastolic 59–69; PULSE 87–102; TEMP 36.4–37.2; O2SAT 90–92
[2017-06-13] MEDS: HYDROCODONE/ACETAMI 10/325 TAB PO PRN ×3 (03:05→14:23)
[2017-06-13] MEDS: POTASSIUM CHLORIDE INJ 10 MEQ in SODIUM CHLORIDE 0.9% 1000ML 1,000 ML IV SCH (03:05)
[2017-06-13] MEDS: MoRPHine SULFATE 4 MG/ML 1 ML CARP\\VIAL IV PRN ×2 (04:07→16:22)
[2017-06-13] MEDS ORDERED: MoRPHine SULFATE 2 MG/ML CARP IV PRN (04:15)
[2017-06-13] MEDS: LEVOTHYROXINE 50 MCG TAB PO SCH (05:46)
[2017-06-13 06:48] LABS: HEMOGLOBIN 9.4 g/dL (12.0-16.0); MEAN CELL VOLUME 88.8 fL (80-100); MEAN CORPUSCULAR HEMOGLOBIN 26.9 pg (25-34); MEAN CORPUSCULAR HGB CONC 30.3 g/dl (32-36); MEAN PLATELET VOLUME 10.3 fL (7.4-10.4); PLATELET COUNT 164 K/uL (130-400); RED CELL DISTRIBUTION WIDTH CV 15.4 % (11.5-14.5); RED CELL DISTRIBUTION WIDTH SD 49.2 fL (36.4-46.3); WHITE BLOOD COUNT 4.94 K/uL (4.8-10.8)
[2017-06-13 07:30] LABS: CREATININE 0.66 mg/dl (0.60-1.20)
[2017-06-13 07:31] LABS: CALCIUM 8.5 mg/dl (8.5-10.1); POTASSIUM 3.8 mmol/L (3.5-5.1)
--- NOTE | 2017-06-13 08:02 | Orthopedic Progress Note ---
Orthopedic Progress Note Date of Service Jun 13, 2017. Subjective Post OP Day: 1 Reports: feeling well, pain controlled w PO medications, Denies: complaints, chest pain, SOB, nausea / vomiting, light headedness, calf pain Objective N/V intact, capillary refill less than 2 sec., dressing C/D/I, A&O x3 Sling in Tact, fingers mobile Date Time Temp Pulse Resp B/P (MAP) Pulse Ox O2 Delivery O2 Flow Rate FiO2 06/13/17 07:34 36.9 87 16 105/65 (78) 92 Room Air 06/13/17 03:53 88 109/65 (80) 06/13/17 02:55 36.8 90 16 94/59 (71) 91 Room Air 06/12/17 23:00 Room Air 06/12/17 22:59 36.7 91 18 116/73 (87) 91 Room Air 06/12/17 20:10 36.8 84 16 105/67 (80) 92 Room Air 06/12/17 15:20 Room Air 06/12/17 15:15 36.4 94 18 133/80 (97) 91 Room Air 06/12/17 14:07 36.7 84 18 117/67 (84) 92 Room Air 06/12/17 13:17 87 16 125/69 (87) 94 Nasal Cannula 2.0 06/12/17 12:49 77 17 102/58 (73) 94 Nasal Cannula 2.0 06/12/17 12:15 37.1 84 18 125/66 (85) 94 Nasal Cannula 2.0 06/12/17 12:15 Nasal Cannula 2.0 06/12/17 12:15 Nasal Cannula 2.0 06/12/17 11:53 78 16 06/12/17 11:53 78 16 92 06/12/17 11:51 106/58 06/12/17 11:48 77 16 92 06/12/17 11:48 77 16 06/12/17 11:46 108/58 06/12/17 11:43 80 17 06/12/17 11:43 80 17 91 06/12/17 11:41 108/61 06/12/17 11:38 77 20 06/12/17 11:38 76 20 91 06/12/17 11:37 75 19 06/12/17 11:37 74 19 92 06/12/17 11:36 119/60 06/12/17 11:32 74 18 06/12/17 11:32 74 18 91 06/12/17 11:31 113/60 06/12/17 11:30 36.3 79 20 113/60 (70) 93 Nasal Cannula 2 06/12/17 11:27 88 24 94 06/12/17 11:27 86 24 06/12/17 11:26 114/62 06/12/17 11:22 79 20 92 06/12/17 11:22 82 20 06/12/17 11:21 127/65 06/12/17 11:20 84 20 89 06/12/17 11:20 84 20 06/12/17 11:16 136/67 06/12/17 11:15 87 16 95 06/12/17 11:15 89 16 06/12/17 11:11 140/77 06/12/17 11:10 90 21 97 06/12/17 11:10 90 21 06/12/17 11:06 147/74 06/12/17 11:05 90 19 96 06/12/17 11:05 89 19 06/12/17 11:01 153/80 06/12/17 11:00 100 95 06/12/17 11:00 100 06/12/17 11:00 36.0 101 16 153/80 (106) 95 Oxymask 10 Laboratory Results 24 Hours: Test 06/13/17 05:38 Hematocrit 31.0 % Hemoglobin 9.4 g/dL Assessment & Plan Assessment: POD #1, Left Reversed TSA, biceps tenodesis Plan: PT/ OT DVT proph- ASA D/C planning- [place] As per medicine Inhouse Planning Pain Management: Toradol, [place], Morphine, PO Tylenol DVT Prophylaxis: ASA Discharge Planning Discharge Planning: senior living facility Pain Management: [place], PO Tylenol DVT Prophylaxis: ASA
[2017-06-13] MEDS ORDERED: PANTOprazole SOD 40 MG TAB PO SCH (09:00)
[2017-06-13] MEDS: FERROUS SULFATE 325 MG TAB PO SCH (09:09)
[2017-06-13] MEDS: ATORVASTATIN 10 MG TAB PO SCH (09:09)
[2017-06-13] MEDS: AMLODIPINE BESYLATE 5 MG TAB PO SCH (09:10)
[2017-06-13] MEDS: PANTOprazole SOD 40 MG TAB PO SCH (09:10)
[2017-06-13] MEDS: MULTIVITAMIN TAB PO SCH (09:11)
[2017-06-13] MEDS: SERTRALINE HCL 100 MG TAB PO SCH ×2 (09:11→21:02)
[2017-06-13] MEDS: METOPROLOL SUCC 25MG EXT REL TAB PO SCH (09:11)
[2017-06-13] MEDS: ASPIRIN 81 MG ECTAB PO SCH (09:11)
[2017-06-13] MEDS: PSYLLIUM 58.6% PWD PACK S\\F PO SCH (09:12)
[2017-06-13] MEDS: INSULIN ASPART 100 UNITS/ML 3 ML PEN SC SCH ×4 (09:16→21:07)
[2017-06-13] MEDS: CYANOCOBALAMIN 2,500 MCG SUBL TAB PO SCH (11:56)
[2017-06-13] MEDS: ROPINIROLE HCL 1 MG TAB PO SCH (20:08)
[2017-06-13] MEDS: MIRTAZAPINE TAB 15 MG TAB PO SCH (21:02)
[2017-06-13] MEDS: TEMAZEPAM 15 MG CAP PO SCH (21:03)
[2017-06-14] MEDS: HYDROCODONE/ACETAMI 10/325 TAB PO PRN ×3 (01:01→13:22)
[2017-06-14] MEDS: LEVOTHYROXINE 50 MCG TAB PO SCH (05:42)
[2017-06-14 07:10] LABS: HEMATOCRIT 32.2 % (37-47); MEAN CORPUSCULAR HEMOGLOBIN 27.3 pg (25-34); MEAN CORPUSCULAR HGB CONC 31.1 g/dl (32-36); PLATELET COUNT 164 K/uL (130-400); RED CELL DISTRIBUTION WIDTH CV 15.3 % (11.5-14.5); WHITE BLOOD COUNT 5.43 K/uL (4.8-10.8)
[2017-06-14 07:25] VITALS: BP 146/74; PULSE 88; TEMP 36.5; O2SAT 91
--- NOTE | 2017-06-14 07:36 | Orthopedic Progress Note ---
Orthopedic Progress Note Date of Service Jun 14, 2017. Subjective Post OP Day: 2 Reports: feeling well, pain controlled w PO medications, Denies: complaints, chest pain, SOB, nausea / vomiting, light headedness, calf pain Objective N/V intact, capillary refill less than 2 sec., dressing C/D/I, incision C/D/I, A &O x3 Sling in tact, fingers mobile. Date Time Temp Pulse Resp B/P (MAP) Pulse Ox O2 Delivery O2 Flow Rate FiO2 06/14/17 07:25 36.5 88 17 146/74 (98) 91 Room Air 06/13/17 23:06 37.2 102 17 120/68 (85) 90 Room Air 06/13/17 19:15 Room Air 06/13/17 14:57 36.9 88 18 111/68 (82) 90 Room Air 06/13/17 11:16 36.4 90 18 128/69 (88) 92 Room Air 06/13/17 10:35 99 92 06/13/17 07:40 Room Air Laboratory Results 24 Hours: Test 06/14/17 06:13 Hematocrit 32.2 % Hemoglobin 10.0 g/dL Assessment & Plan Assessment: POD #2, Left Reversed TSA, biceps tenodesis Plan: PT/ OT DVT proph- ASA D/C planning- [place] As per medicine Inhouse Planning Pain Management: Toradol, [place], Morphine, PO Tylenol DVT Prophylaxis: ASA Discharge Planning Discharge Planning: detention facility Pain Management: [place], PO Tylenol DVT Prophylaxis: ASA
[2017-06-14 07:39] LABS: CALCIUM 8.1 mg/dl (8.5-10.1); CREATININE 0.57 mg/dl (0.60-1.20)
[2017-06-14] MEDS ORDERED: ATOR10TA82 PO (07:42)
[2017-06-14] MEDS ORDERED: SENNTAB13 PO (07:42)
[2017-06-14] MEDS ORDERED: LEVO50TA6 PO (07:42)
[2017-06-14] MEDS ORDERED: TEMA30CA4 PO (07:42)
[2017-06-14] MEDS ORDERED: MULT-506 PO (07:42)
[2017-06-14] MEDS ORDERED: ASPI-320 PO (07:42)
[2017-06-14] MEDS ORDERED: ROPI2TAB6 PO (07:42)
[2017-06-14] MEDS ORDERED: SERT-234 PO (07:42)
[2017-06-14] MEDS ORDERED: ALPR-411 PO (07:42)
[2017-06-14] MEDS ORDERED: GLC/500 PO (07:42)
[2017-06-14] MEDS ORDERED: MIRT30TA3 PO (07:42)
[2017-06-14] MEDS ORDERED: AMLO-110 PO (07:42)
[2017-06-14] MEDS ORDERED: METO-478 PO (07:42)
[2017-06-14] MEDS ORDERED: PRT40 PO (07:42)
[2017-06-14] MEDS ORDERED: PSYL48.59 PO (07:42)
[2017-06-14] MEDS ORDERED: CYAN500T13 PO (07:42)
[2017-06-14] MEDS ORDERED: HYDR-4079 PO (07:42)
[2017-06-14] MEDS ORDERED: ACET-1047 PO (07:42)
--- NOTE | 2017-06-14 07:44 | Discharge Instructions ---
Discharge Instructions Date of Service Jun 14, 2017. Admission Reason for Admission: Left Shoulder Osteoarthritis Discharge Discharge Diagnosis / Problem: Left Reversed TSA, biceps tenodesis Discharge Goals Goal(s): Improve function Activity Recommendations Activity Level: Assistance Required . Additional Information Patient informed of condition: Yes Advance Directives: Yes DNR: No Level of Care: Skilled Communicable Disease: No Prognosis: Improving Anderson Catheter: No Instructions / Follow-Up Instructions / Follow-Up ACTIVITY RECOMMENDATIONS: SELF CARE INSTRUCTIONS AFTER TOTAL SHOULDER ARTHROPLASTY REVERSE A. You may do daily exercises as taught in physical therapy while in hospital. No lifting with the operative arm. B. You are to wear your sling/immobilizer at all times EXCEPT when performing your daily exercises and for hygiene purposes. C. You may perform dry, daily dressing changes. Please keep your incision covered. You may shower 48 hours after surgery. Do not apply soap or any ointment/ lotions directly over incision. Do not soak incision in bath tub/swimming pool. D. You may use ice as needed to operative shoulder. SPECIAL CARE INSTRUCTIONS: VERY IMPORTANT TO READ AND REVIEW A. There are a few signs you need to watch for after you are home. Call [facility] at [phone] if you experience any of the followin. Increased severe shoulder pain. Some pain is expected especially when you exercise. 2. Increased swelling in you shoulder or arm; pain or swelling in either upper extremity. 3. Any fluid drainage from the incision. 4. Shortness of breath or chest pain. B. Please call [facility] at [phone] if you have any questions or concerns about your operation or recovery. C. Call your physician if: 1. Temperature is greater than 101 degrees (F). 2. Pain is not relieved by prescribed pain medications. 3. Increase drainage or redness from incision. 4. Unanswered questions or concerns. FOLLOW UP VISIT: Please call [facility] at [phone] to schedule a follow up appointment with Dr. Gaona or his PA in 12-14 days from your surgery date. Current Hospital Diet Patient's current hospital diet: Diabetes Type 2 Diet Discharge Diet Recommended Diet: Diabetes Type 2 Diet Procedures Procedures Performed: left reversed total shoulder replacement,biceps tenodesis Pending Studies Studies pending at discharge: no Laboratory Results Hemoglobin A1c Test 3/1/18 16:00 Range/Units Estimated Average Glucose 148 mg/dl Hemoglobin A1c 6.8 H 4.5-5.6 % Medical Emergencies . Who to Call and When: Medical Emergencies: If at any time you feel your situation is an emergency, please call 911 immediately. . Non-Emergent Contact Non-Emergency issues call your: Primary Care Provider . . "Provider Documentation" section prepared by Jonny Rubin. . Core Measure Problem Core Measures: VTE VTE Core Measures Date of VTE Diagnosis: Jun 14, 2017 Time of VTE Diagnosis: 07:43 Reason no anticoag overlap I/P: Treatment provided - N/A Reason no anticoag overlap @DC: Treatment provided - N/A [place] Drug Monitoring Program Search Results: patient reviewed within database, no issues identified
[2017-06-14] MEDS: INSULIN ASPART 100 UNITS/ML 3 ML PEN SC SCH ×2 (08:41→13:17)
[2017-06-14] MEDS: METOPROLOL SUCC 25MG EXT REL TAB PO SCH (08:42)
[2017-06-14] MEDS: MULTIVITAMIN TAB PO SCH (08:42)
[2017-06-14] MEDS: PANTOprazole SOD 40 MG TAB PO SCH (08:42)
[2017-06-14] MEDS: CYANOCOBALAMIN 2,500 MCG SUBL TAB PO SCH (08:43)
[2017-06-14] MEDS: FERROUS SULFATE 325 MG TAB PO SCH (08:43)
[2017-06-14] MEDS: ATORVASTATIN 10 MG TAB PO SCH (08:43)
[2017-06-14] MEDS: ASPIRIN 81 MG ECTAB PO SCH (08:44)
[2017-06-14] MEDS: AMLODIPINE BESYLATE 5 MG TAB PO SCH (08:44)
[2017-06-14] MEDS: PSYLLIUM 58.6% PWD PACK S\\F PO SCH (08:45)
[2017-06-14] MEDS: SERTRALINE HCL 100 MG TAB PO SCH (08:45)
[2017-06-14] MEDS: MoRPHine SULFATE 2 MG/ML CARP IV PRN ×2 (10:40→15:52)
[2017-06-14 15:25] VITALS: BP 146/74; PULSE 88; TEMP 36.5; O2SAT 91
== END 2017-06-14 16:15 | DRG 483 ==
LOC: C.ACU 06:40 → C.3E 07:04 → ENRESERV 11:53
PROVIDERS: ADMIT Orthopaedic Surgery Sports Medicine; ATTEND Orthopaedic Surgery Sports Medicine
PROC: 0RRK00Z Replacement of Left Shoulder Joint with Reverse Ball and Socket Synthetic Substitute, Open Approach (ICD-10-PCS; principal; 2017-06-12 08:30)
DX: M19.012 Primary osteoarthritis, left shoulder (principal); I10 Essential (primary) hypertension; E78.00 Pure hypercholesterolemia, unspecified; E11.9 Type 2 diabetes mellitus without complications; E03.9 Hypothyroidism, unspecified; K21.9 Gastro-esophageal reflux disease without esophagitis; E66.9 Obesity, unspecified; F32.9 Major depressive disorder, single episode, unspecified; F41.1 Generalized anxiety disorder; Z96.649 Presence of unspecified artificial hip joint; Z96.653 Presence of artificial knee joint, bilateral; Z96.611 Presence of right artificial shoulder joint; G47.00 Insomnia, unspecified; G89.29 Other chronic pain; M54.9 Dorsalgia, unspecified; Z68.33 Body mass index [BMI] 33.0-33.9, adult; Z90.49 Acquired absence of other specified parts of digestive tract; Z88.5 Allergy status to narcotic agent; Z80.9 Family history of malignant neoplasm, unspecified; Z82.49 Family history of ischemic heart disease and other diseases of the circulatory system

== ENCOUNTER 2019-03-23 04:55 | Inpatient (IN) ==
--- NOTE | 2019-02-24 14:05 | PAT Medication Instructions ---
Medication Instructions Date of Service February 24, 2019 Home Medications Medication Instructions Recorded metformin 500 mg tablet 500 mg PO BID #180 tab 08/08/18 blood sugar diagnostic #100 ea 09/22/18 mirtazapine 30 mg tablet 30 mg PO HS #30 tab 10/22/18 lancets 33 gauge #100 ea 10/26/18 sertraline 100 mg tablet 100 mg PO BID #90 tab 10/26/18 hydrocodone 10 mg-acetaminophen 1 tab PO QID PRN #100 tab 02/05/19 325 mg tablet buprenorphine 10 mcg/hour weekly 1 patch TD Q7D #4 ea 02/23/19 transdermal patch aspirin 81 mg tablet,delayed release 81 mg PO QAM 07/23/18 [History Confirmed 02/23/19] docusate sodium 50 mg capsule 50 mg PO QPM 07/23/18 [History Confirmed 02/23/19] nystatin 100,000 unit/gram topical powder 1 appln TOP BID PRN psyllium husk 3.4 gram/5.4 gram oral powder 1 tbs PO QPM 07/23/18 [History Confirmed 02/23/19] metformin 500 mg tablet 500 mg PO BID #180 tab 08/08/18 [Rx Confirmed 02/23/19] mirtazapine 30 mg tablet 30 mg PO HS #30 tab 10/22/18 [Rx Confirmed 02/23/19] cyanocobalamin (vitamin B-12) 5,000 mcg disintegrating tablet 5,000 mcg PO QAM multivitamin 1 tab PO QAM 10/26/18 [History Confirmed 02/23/19] sertraline 100 mg tablet 100 mg PO BID #90 tab 10/26/18 [Rx Confirmed 02/23/19] levothyroxine 50 mcg tablet 50 mcg PO QAM 11/03/18 [History Confirmed 02/23/19] ropinirole 2 mg tablet 2 mg PO HS tab 11/03/18 [History Confirmed 02/23/19] temazepam 15 mg capsule 30 mg PO HS cap 11/03/18 [History Confirmed 02/23/19] hydrocodone 10 mg-acetaminophen 325 mg tablet 1 tab PO QID PRN amlodipine 5 mg PO QAM 02/09/19 [History Confirmed 02/23/19] atorvastatin 10 mg PO QAM 02/09/19 [History Confirmed 02/23/19] buspirone 5 mg PO BID 02/09/19 [History Confirmed 02/23/19] metoprolol succinate 25 mg PO QAM 02/09/19 [History Confirmed 02/23/19] pantoprazole 40 mg PO QAM 02/09/19 [History Confirmed 02/23/19] buprenorphine 10 mcg/hour weekly transdermal patch 1 patch TD Q7D #4 ea 02/23/19 [Rx] Continue as directed buprenorphine 10 mcg/hour weekly transdermal patch 1 patch TD Q7D (okay to continue but avoid placement over surgery site prior to surgery) STOP taking 24 hours before surgery nystatin 100,000 unit/gram topical powder 1 appln TOP BID PRN ropinirole 2 mg tablet 2 mg PO HS tab 11/03/18 [History Confirmed 02/23/19] DO NOT take the morning of surgery metformin 500 mg tablet 500 mg PO BID #180 tab 08/08/18 [Rx Confirmed 02/23/19] cyanocobalamin (vitamin B-12) 5,000 mcg disintegrating tablet 5,000 mcg PO QAM multivitamin 1 tab PO QAM 10/26/18 [History Confirmed 02/23/19] Take morning of surgery With a small sip of water, OTHERWISE NOTHING TO EAT OR DRINK AFTER MIDNIGHT: aspirin 81 mg tablet,delayed release 81 mg PO QAM 07/23/18 [History Confirmed 02/23/19] sertraline 100 mg tablet 100 mg PO BID #90 tab 10/26/18 [Rx Confirmed 02/23/19] levothyroxine 50 mcg tablet 50 mcg PO QAM 11/03/18 [History Confirmed 02/23/19] hydrocodone 10 mg-acetaminophen 325 mg tablet 1 tab PO QID PRN (okay to take up to 4 hours prior to surgery if needed) amlodipine 5 mg PO QAM 02/09/19 [History Confirmed 02/23/19] atorvastatin 10 mg PO QAM 02/09/19 [History Confirmed 02/23/19] buspirone 5 mg PO BID 02/09/19 [History Confirmed 02/23/19] metoprolol succinate 25 mg PO QAM 02/09/19 [History Confirmed 02/23/19] pantoprazole 40 mg PO QAM 02/09/19 [History Confirmed 02/23/19] Take evening before surgery docusate sodium 50 mg capsule 50 mg PO QPM 07/23/18 [History Confirmed 02/23/19] psyllium husk 3.4 gram/5.4 gram oral powder 1 tbs PO QPM 07/23/18 [History Confirmed 02/23/19] metformin 500 mg tablet 500 mg PO BID #180 tab 08/08/18 [Rx Confirmed 02/23/19] mirtazapine 30 mg tablet 30 mg PO HS #30 tab 10/22/18 [Rx Confirmed 02/23/19] sertraline 100 mg tablet 100 mg PO BID #90 tab 10/26/18 [Rx Confirmed 02/23/19] temazepam 15 mg capsule 30 mg PO HS cap 11/03/18 [History Confirmed 02/23/19] hydrocodone 10 mg-acetaminophen 325 mg tablet 1 tab PO QID PRN (if needed) buspirone 5 mg PO BID 02/09/19 [History Confirmed 02/23/19] Other Notes If you have any questions please call us at [phone] or [phone] or [phone] or [phone]
--- NOTE | 2019-02-25 13:49 | Anesthesiology Consultation ---
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 Case/ECHO reviewed with Dr. Malloy. He feels that further cardiac evaluation/testing not needed prior to surgery from his perspective. Will defer to PCP if anything further needed from their perspective. Awaiting surgeon-ordered PCP preop evaluation scheduled 02/27 (Joanna Carl, PAC/[facility]). Chart Review Chart Review: Patient seen in Pre Admission Testing Teaching & Discussion Pre-Anesthesia Teaching/Discussion Notes: Instructed NPO after midnight before surgery,except medications with 15 cc of water. Medication instructions provided according to the PAT guidelines. History Surgery Operation Date: 03/23/19 09:10 Proposed Procedures p Left Posterior Total Hip Arthroplasty - Abebe Yepez DO Height/Weight Height: 5 ft 2 in Weight: 86.5 kg Allergies Allergy/AdvReac Type Severity Reaction Status Date / Time No Known Allergies Allergy Verified 02/23/19 11:01 Medications Home Medications Medication Instructions Recorded Confirmed Last Taken aspirin 81 mg tablet,delayed 81 mg PO QAM 07/23/18 02/23/19 Unknown release docusate sodium 50 mg capsule 50 mg PO QPM 07/23/18 02/23/19 Unknown nystatin 100,000 unit/gram topical 1 appln TOP BID PRN 07/23/18 02/23/19 Unknown powder psyllium husk 3.4 gram/5.4 gram 1 tbs PO QPM 07/23/18 02/23/19 Unknown oral powder metformin 500 mg tablet 500 mg PO BID #180 tab 08/08/18 02/23/19 Unknown blood sugar diagnostic #100 ea 09/22/18 02/23/19 Unknown mirtazapine 30 mg tablet 30 mg PO HS #30 tab 10/22/18 02/23/19 Unknown cyanocobalamin (vitamin B-12) 5,000 mcg PO QAM tab 10/26/18 02/23/19 Unknown 5,000 mcg disintegrating tablet lancets 33 gauge #100 ea 10/26/18 02/23/19 Unknown multivitamin 1 tab PO QAM 10/26/18 02/23/19 Unknown sertraline 100 mg tablet 100 mg PO BID #90 tab 10/26/18 02/23/19 Unknown levothyroxine 50 mcg tablet 50 mcg PO QAM 11/03/18 02/23/19 Unknown ropinirole 2 mg tablet 2 mg PO HS tab 11/03/18 02/23/19 Unknown temazepam 15 mg capsule 30 mg PO HS cap 11/03/18 02/23/19 Unknown hydrocodone 10 mg-acetaminophen 1 tab PO QID PRN #100 tab 02/05/19 02/23/19 Unknown 325 mg tablet amlodipine 5 mg PO QAM 02/09/19 02/23/19 Unknown atorvastatin 10 mg PO QAM 02/09/19 02/23/19 Unknown buspirone 5 mg PO BID 02/09/19 02/23/19 Unknown metoprolol succinate 25 mg PO QAM 02/09/19 02/23/19 Unknown pantoprazole 40 mg PO QAM 02/09/19 02/23/19 Unknown buprenorphine 10 mcg/hour weekly 1 patch TD Q7D #4 ea 02/23/19 Unknown transdermal patch Past Medical History Medical History Benign essential hypertension Depression Diabetes mellitus, type 2 NIDDM Diabetic peripheral neuropathy SERGE (generalized anxiety disorder) Gait abnormality Generalized osteoarthritis of multiple sites GERD (gastroesophageal reflux disease) rare H/O peptic ulcer remote hx with GIB/received blood transfusion Hiatal hernia History of kidney stones Hyperlipidemia Hypothyroidism Insomnia Lumbar radiculopathy Obesity Pain syndrome, chronic Poor historian Restless legs syndrome Spinal stenosis, lumbar region with neurogenic claudication Urinary incontinence Exercise / Class Metabolic Activity III < 4 Walking/Shop/Light housework (walker or cane PRN) Past Family History Family History Father Heart disease Mother Cancer Other No family history of adverse response to anesthesia Past Surgical History Surgical History H/O basal cell carcinoma excision H/O colonoscopy H/O cystoscopy H/O dilation and curettage History of ankle surgery History of bilateral knee replacement (Resolved) History of cholecystectomy (Resolved) History of esophagogastroduodenoscopy (EGD) History of kyphoplasty (Resolved) History of left cataract surgery (Resolved) History of reverse total replacement of shoulder joint (Resolved) R/L; Left reverse TSA: 06/12/17: Grde view 1, MAC#3, ETT 7.0 at [facility] History of right hip replacement (Resolved) History of surgery H/O RT NEPHROSTOMY TUBE PLACEMENT AND REMOVAL History of ureter stent Past Anesthesia History No Hx of Anesthesia Complications and No Family Hx of Anesthesia Complications History of PONV No Hx of PONV and No Hx of Motion Sickness Social History Smoking Status: Never smoker Do You Dip or Chew Tobacco: No Hx Alcohol Use: No Hx Substance Use: No Review of Systems Rare reflux. Patient denies chest pain, shortness of breath, cough, wheezing, palpitations. Physical Exam Vital Signs VITALS BP 118/71 P 78 TEMP 98.4 SP02 93%RA RESP 16 PHYSICAL Full neck and c-spine range of motion. Full TMJ range of motion. TMD 3 finger breaths Mallampati Score 2 Dentition: upper dentures Lungs: clear throughout to auscultation Cardiac: regular rate and rhythm, II/ systolic murmur Spine: normal Carotid arteries: negative bruit Extremities: no edema Testing Laboratory Results PT 10.3 Seconds (9.0-12.0) 02/25/19 14:03 INR 1.0 (0.9-1.1) 02/25/19 14:03 APTT 25.9 Seconds (21.0-31.0) 02/25/19 14:03 Urine Color Dark Yellow 02/25/19 Unknown Urine Appearance Clear (Clear) 02/25/19 Unknown Urine pH 5.0 (4.5-7.5) 02/25/19 Unknown Ur Specific [place] 1.026 (1.000-1.030) 02/25/19 Unknown Urine Protein Negative (Negative) 02/25/19 Unknown Urine Glucose (UA) Negative (Negative) 02/25/19 Unknown Urine Ketones Negative (Negative) 02/25/19 Unknown Urine Nitrite Negative (Negative) 02/25/19 Unknown Ur Leukocyte Esterase Negative (Negative) 02/25/19 Unknown Blood Type O Positive 02/25/19 14:03 Antibody Screen NEGATIVE 02/25/19 14:03 01/22/19 WBC 4.74 H/H 12.6/41.7 PLATELETS 190 SODIUM 138 POTASSIUM 4.1 CHLORIDE 104 CO2 30 BUN 17 CREATININE 0.62 GLUCOSE 97 HGBA1C 7.3% Electrocardiogram Date: 02/13/19 SR at 81bpm. Moderate IVCD. Minimal voltage criteria for LVH, consider normal variant. Chest X-Ray Date: 02/25/19 Incidental note is made of bilateral shoulder arthroplasties. There is a moderate sized hiatal hernia. Cardiac size is at upper limits of normal. There is no pneumothorax or pleural effusion. There is no evidence for pulmonary edema. Minimal bibasilar opacities favor atelectasis. There is no consolidation. Several old thoracic spine compression deformities are noted. There is a 1 level vertebral augmentation. Mild lung hyperexpansion is noted. IMPRESSION: 1. No acute findings. 2. Mild lung hyperexpansion. There may be underlying emphysema. 3. Moderate-sized hiatal hernia. Echocardiogram Date: 06/06/17 EF 55-60%. No RWMA. Septal motion consistent with BBB. Mild cLVH. Severe asymmetric hypertrophy of the septal base (no evidence of outflow tract obstruction). Type 1 DD. Mild LAD. Mild MR. Other Testing Carotid doppler: 06/06/17: No hemodynamically significant stenosis seen within the carotid arteries. No evidence of stenosis within the vertebral arteries.
--- NOTE | 2019-02-25 14:51 | XRay Report ---
XR chest Pre-admission PA/Lat CLINICAL HISTORY: Preoperative evaluation. COMPARISON STUDY: Chest radiograph June 06, 2017 FINDINGS: Incidental note is made of bilateral shoulder arthroplasties. There is a moderate sized hia elizabeth hernia. Cardiac size is at upper limits of normal. There is no pneumothorax or pleural effusion. There is no evidence for pulmonary edema. Minimal bibasilar opacities favor atelectasis. There is no consolidation. Several old thoracic spine compression deformities are noted. There is a 1 level verte bral augmentation. Mild lung hyperexpansion is noted. IMPRESSION: 1. No acute findings. 2. Mild lung hyperexpansion. There may be underlying emphysema. 3. Moderate-sized hiatal hernia. ACT 112: Negative or not required by law. Electronically signed by: Damion Roy M.D. 02/25/2019 2:50 PM
[2019-02-25 15:08] LABS: Appearance Urine Clear (Clear); Bilirubin Urine Negative (Negative); Blood Urine Negative (Negative); Color Urine Dark Yellow; Glucose Urine UA Negative (Negative); Ketones Urine Negative (Negative); Leukocyte Esterase Urine Negative (Negative); Nitrite Urine Negative (Negative); Protein Urine Negative (Negative); Specific Gravity Urine 1.026 (1.000-1.030); Urobilinogen Urine Negative (Negative)
[2019-02-25 15:19] LABS: Partial Thromboplastin Time 25.9 Seconds (21.0-31.0); Prothrombin Time 10.3 Seconds (9.0-12.0)
--- NOTE | 2019-03-22 15:45 | History & Physical Report ---
Date of Service March 22, 2019 Assessment & Plan (1) Degenerative joint disease of left hip: I have indicated the patient for left total hip replacement. The risks, benefits and complications of surgery were explained to the patient which include but not limited to infection, acute blood loss, DVT/PE, injury to nerves, vessels, bone, soft tissue, arthrofibrosis, chronic pain, failure of the prosthesis, hip dislocation, leg length discrepancy, need for additional surgery, cardiac and pulmonary events and . The patient wished to proceed with surgery and informed consent was obtained at this time. We will plan for Lovenox post-operatively for DVT prophylaxis. Upon discharge the patient will be discharged home with home health services. Appropriate clearances by PCP and pain mgnt were obtained. History of Present Illness Chief Complaint: Left hip pain/djd Primary Care Provider: Shaunna West MD The patient is a 88 year old female who presents with complaints of severe left hip pain and DJD. The patient has failed outpatient conservative treatments to this point which included intra-articular corticosteroid injection and a home exercise/walking program. Patient unable to take NSAIDs secondary to previous GI ulcer/bleed. The patient's pain and limited function have progressed to the point where they severely hinder their activities of daily living and they no longer tolerate exercise programs. They are requesting to proceed with total hip replacement surgery. Allergies Allergy/AdvReac Type Severity Reaction Status Date / Time No Known Allergies Allergy Verified 03/23/19 05:24 Home Medications Home Medications Medication Instructions Recorded Confirmed Type aspirin 81 mg tablet,delayed 81 mg PO QAM 07/23/18 03/23/19 History release docusate sodium 50 mg capsule 50 mg PO QPM 07/23/18 03/23/19 History nystatin 100,000 unit/gram topical 1 appln TOP BID PRN 07/23/18 03/23/19 History powder psyllium husk 3.4 gram/5.4 gram 1 tbs PO QPM 07/23/18 03/23/19 History oral powder metformin 500 mg tablet 500 mg PO BID #180 tab 08/08/18 03/23/19 Rx blood sugar diagnostic #100 ea 09/22/18 02/23/19 Rx mirtazapine 30 mg tablet 30 mg PO HS #30 tab 10/22/18 03/23/19 Rx cyanocobalamin (vitamin B-12) 5,000 mcg PO QAM tab 10/26/18 03/23/19 History 5,000 mcg disintegrating tablet lancets 33 gauge #100 ea 10/26/18 02/23/19 Rx multivitamin 1 tab PO QAM 10/26/18 03/23/19 History sertraline 100 mg tablet 100 mg PO BID #90 tab 10/26/18 03/23/19 Rx levothyroxine 50 mcg tablet 50 mcg PO QAM 11/03/18 03/23/19 History ropinirole 2 mg tablet 2 mg PO HS tab 11/03/18 03/23/19 History temazepam 15 mg capsule 30 mg PO HS cap 11/03/18 03/23/19 History amlodipine 5 mg PO QAM 02/09/19 03/23/19 History atorvastatin 10 mg PO QAM 02/09/19 03/23/19 History metoprolol succinate 25 mg PO QAM 02/09/19 03/23/19 History pantoprazole 40 mg PO QAM 02/09/19 03/23/19 History buprenorphine 10 mcg/hour weekly 1 patch TD Q7D #4 ea 02/23/19 03/23/19 Rx transdermal patch buspirone 5 mg tablet 5 mg PO BID #60 tab 03/02/19 03/23/19 Rx hydrocodone 10 mg-acetaminophen 1 tab PO QID PRN #100 tab 03/05/19 03/23/19 Rx 325 mg tablet Past Med/Surg History Medical History Benign essential hypertension Depression Diabetes mellitus, type 2 NIDDM Diabetic peripheral neuropathy SERGE (generalized anxiety disorder) Gait abnormality Generalized osteoarthritis of multiple sites GERD (gastroesophageal reflux disease) rare H/O peptic ulcer remote hx with GIB/received blood transfusion Hiatal hernia History of kidney stones Hyperlipidemia Hypothyroidism Insomnia Lumbar radiculopathy Obesity Pain syndrome, chronic Poor historian Restless legs syndrome Spinal stenosis, lumbar region with neurogenic claudication Urinary incontinence Surgical History H/O basal cell carcinoma excision H/O colonoscopy H/O cystoscopy H/O dilation and curettage History of ankle surgery History of bilateral knee replacement (Resolved) History of cholecystectomy (Resolved) History of esophagogastroduodenoscopy (EGD) History of kyphoplasty (Resolved) History of left cataract surgery (Resolved) History of reverse total replacement of shoulder joint (Resolved) R/L; Left reverse TSA: 06/12/17: Grde view 1, MAC#3, ETT 7.0 at [facility] History of right hip replacement (Resolved) History of surgery H/O RT NEPHROSTOMY TUBE PLACEMENT AND REMOVAL History of ureter stent Family History Father Heart disease Mother Cancer Other No family history of adverse response to anesthesia Social History Preferred Language: Divehi Communication Ability: Effective Referral And Information Aide Required: No Beliefs That Will Affect Care: None marital status: Current Living Situation: Alone Other Information That Helps Us Care for You: No Feels Safe at Home: Yes Safety Concerns: Feels Safe At This Time Smoking Status: Never smoker Do You Dip or Chew Tobacco: No ; Second Hand Exposure: No ; Hx Alcohol Use: No Hx Substance Use: No Review of Systems Review of Systems: All systems reviewed & are unremarkable except as noted in HPI & below Constitutional: as per Subjective / HPI Physical Exam Physical Exam: LLE NVSI +EHL/FHL/TA/GS SILT grossly, +2 DP pulse, compartments soft NT, limited painful ROM of the hip, antalgic gait. Constitutional: WD/WN, vitals as above Eyes: PERRL, conjunctivae normal, anicteric sclerae ENMT: external ear and nose normal, oropharynx normal Neck: trachea midline, no thyromegaly Respiratory: normal respiratory effort, lungs clear to auscultation Cardiovascular: RRR, no murmur, no edema Gastrointestinal (Abdomen): normal bowel sounds, soft, nontender, no hepatosplenomegaly Musculoskeletal: no cyanosis or clubbing, extremities motor strength 5/5 Skin: no rashes, warm and dry Neurologic: patellar DTR's 2+ bilat, sensation intact Psychiatric: A+Ox3, euthymic affect Lymphatic: no cervical or axillary lymphadenopathy Results & Data Diagnostic Findings Multiple views of the hip demonstrates severe DJD with complete loss of the joint space. +osteophytes, +sclerosis, +subchondral cysts.
[2019-03-23] MEDS ORDERED: ROPIVACAINE 0.5% HCL/PF 150 MG, BUPIVACAINE 0.5% MPF 30 ML, EPINEPHrine 30MG/30ML (OR U... INSTIL SCH (06:00)
[2019-03-23] MEDS ORDERED: METOCLOPRAMIDE HCL 10 MG TABLET PO SCH (06:00)
[2019-03-23] MEDS ORDERED: CEFAZOLIN 2000MG 2,000 MG/15 ML SYR IV SCH (06:00)
[2019-03-23] MEDS ORDERED: TRANEXAMIC ACID 1,000 MG **IV Pre-op IV SCH (06:00)
[2019-03-23] MEDS ORDERED: CeleBREX 200 MG CAP PO SCH (06:00)
[2019-03-23] MEDS ORDERED: TRANEXAMIC ACID 1,000 MG **IV Intra-op IV SCH (06:00)
[2019-03-23] MEDS ORDERED: dexAMETHasone 4 MG TAB PO SCH (06:00)
[2019-03-23] MEDS ORDERED: GABAPENTIN 300 MG CAP PO SCH (06:00)
[2019-03-23] MEDS ORDERED: FAMOTIDINE 20 MG TAB PO SCH (06:00)
[2019-03-23] MEDS ORDERED: LR 500ML BOLUS, THEN 15ML/HR IV SCH (06:00)
[2019-03-23] MEDS ORDERED: BACITRACIN INJ 50,000 UNIT VIAL ONE (06:35)
[2019-03-23] MEDS ORDERED: ORTHO JOINT ANESTHETIC ONE (06:35)
[2019-03-23] MEDS ORDERED: fentaNYL citrate 100 MCG/2 ML VIAL ONE ×2 (06:40→08:15)
[2019-03-23] MEDS ORDERED: MIDAZOLAM HCL 1 MG/ML 2ML VIAL ONE (06:40)
--- NOTE | 2019-03-23 06:51 | History & Physical Bridge Note ---
Date of Service March 23, 2019 History & Physical Bridge Note I have examined the patient, reviewed the History & Physical and in the interval since the performance of the History & Physical I have noted the following changes of clinical significance: no changes noted
[2019-03-23] MEDS ORDERED: ATROPINE SULFATE 0.1 MG/ML 10ML SYR IV PRN (07:29)
[2019-03-23] MEDS ORDERED: PHENYLEPHRINE 100MCG/ML 5ML SYR IV PRN (07:29)
[2019-03-23] MEDS ORDERED: ePHEDrine sulfate 50 MG/ML AMP IV PRN (07:29)
[2019-03-23] MEDS ORDERED: fentaNYL citrate 100 MCG/2 ML VIAL IV PRN (07:29)
[2019-03-23] MEDS ORDERED: ONDANSETRON INJ 2 MG/ML 2 ML VIAL IV PRN ×2 (07:29→10:45)
[2019-03-23] MEDS ORDERED: LABETALOL HCL IV 5 MG/ML 20ML IV PRN (07:29)
[2019-03-23] MEDS ORDERED: HYDROmorphone INJ 1 MG/ML SYRINGE IV PRN (07:29)
[2019-03-23] MEDS ORDERED: PROPOFOL IV EMULSION 10 MG/ML 20 ML VIAL IV ONE (08:01)
[2019-03-23] MEDS ORDERED: ROCURONIUM BROMIDE 10 MG/ML 5 ML VIAL ONE (08:01)
[2019-03-23] MEDS ORDERED: LIDOCAINE HCL 2% 2 ML VIAL/AMP(20MG/ML) INFIL ONE (08:01)
--- NOTE | 2019-03-23 08:42 | Post Operative Brief Note ---
Immediate Post Op Note v1 Date of Surgery March 23, 2019 Pre & Post Diagnosis Operation Date: 03/23/19 07:00 Pre-Op Diagnosis: Left Hip Degenerative Joint Disease Post-Op Diagnosis: Left Hip Degenerative Joint Disease I identified the patient and participated in the time-out.: Yes Procedure Operation Date: 03/23/19 07:00 Actual Procedures p Left Posterior Total Hip Arthroplasty--Uncemented(Left) - Abebe Yepez DO Surgeon Abebe Yepez DO Plugger Man Silverio Card Estimated Blood Loss 125 Findings Consistent with Post-Op Diagnosis Fluids 1700 cc LR Specimens femoral head Anesthesia Type Spinal MAC Disposition Disposition: Recovery Room Overlapping Procedure I was present for: the critical portions of procedure. I was immediately available: during the entire case. Back up surgeon: was not required during procedure.
--- NOTE | 2019-03-23 08:52 | Operative Report ---
Post Operative Report Pre & Post Diagnosis Operation Date: 03/23/19 07:00 Pre-Op Diagnosis: Left Hip Degenerative Joint Disease Post-Op Diagnosis: Left Hip Degenerative Joint Disease I identified the patient and participated in the time-out.: Yes Procedure Operation Date: 03/23/19 07:00 Actual Procedures p Left Posterior Total Hip Arthroplasty--Uncemented(Left) - Abebe Yepez DO Surgeon Abebe Yepez DO Prepleater Silverio Card Estimated Blood Loss 125 Findings Consistent with Post-Op Diagnosis Fluids 1700 cc LR Specimens Femoral head Anesthesia Type Spinal MAC Complications none Disposition Disposition: Recovery Room Indications The patient is a 88-year-old female who presents with severe progressive left hip DJD who has failed outpatient conservative treatments. I indicated the patient for a total hip replacement and the risks and benefits were explained in detail which included but not limited to infection, bleeding, blood clot, damage to surrounding bone, nerves, vessels, soft tissue, hip dislocation, failure of the prosthesis, leg length discrepancy, need for additional surgery and . The patient agreed to proceed with replacement of the hip and informed consent was obtained. Appropriate clearances were obtained. Description of Procedure COMPONENTS USED: Isidro Biomet hip system: Acetabulum size 50 G7 osteo-ti, femur size 4 Avinir standard offset, femoral head 36+3.5, liner 5036, acetabular screw 30 mm x 1. Following induction of adequate spinal anesthesia, the patient was transferred to the OR table and placed in lateral decubitus position with right hip down. The left hip was prepped and draped in the typical sterile fashion. A timeout was performed, patient identified and site osman confirmed. Appropriate antibiotics were given. A standard posterolateral/Shana-Langenbeck incision was made. Subcutaneous tissue was sharply dissected. Electrocautery was utilized for hemostasis. The fascia was incised throughout the length of the wound and retracted with the Charnley retractor. The bursa was taken down and the short external rotators were identified. The piriformis was tagged with #1 Vicryl. The short external rotators and capsule were divided from the posterior aspect of the femur using electrocautery. The posterior capsule was tagged with #1 Vicryl. Both external rotators and posterior capsule were swept posterior and protected, along with protecting the sciatic nerve. The hip was dislocated by flexion and internally rotation in a controlled manner and exposure of the femoral neck was gained with an old-style Hohmann and a blunt cobra retractor. A femoral cutting guide was utilized for making the appropriate level femoral neck cut with reciprocating saw. The femoral head was removed, measured and reserved on the back table. Next, attention was turned to the acetabulum. A posterior and anterior offset retractor was placed to gain adequate exposure. Acetabular labrum as well as posterior capsule elements were removed using electrocautery and forceps. Fovea centralis was cleared of all soft tissue. Sequential reaming was performed starting at 43 mm and carried up to a 49 mm and decision was made to proceed with impaction of a 50 mm G7 Osteo-ti cup. This was impacted and held using a single 30 mm bone screw. The trial acetab ular liner was placed at this time. Next, attention was turned to the proximal femur where a Bovie and pickup was used to further clear short external rotators from their insertion on the femur. Box osteotome and canal finder was used to gain access to the femoral canal and the lateral reamer on power was used to further open the proximal lateral canal. Sequentially rasping was carried up to a 4 which gave good fit and fill of the proximal femur. A trial reduction was carried out with a standard offset femoral neck component a 36+0 mm femoral head. We sequentially trialed to a +3.5. The trial reduction was stable in all degrees of rotation with no [id number] impingement. The hip was dislocated, trial components were removed and access to the acetabulum was re- established. The trial liner was removed and the cup was irrigated to ensure all debris was removed. The final acetabular liner was inserted and properly seated in the cup. Access to the femur was once more gained and the size 4 femoral stem with standard offset was impacted into position. The hip was once more assessed with the 36+3.5 mm femoral head. Stability was accessed and found to be excellent with equal leg lengths. The hip was dislocated for the last time and the final 36+3.5 ceramic femoral head was impacted in place and the hip was reduced. Range of motion was checked once again and found to be stable. A Betadine soak was performed. After 3 minutes, the hip was once more irrigated with copious sterile saline solution with bacitracin. The zaria-incisional soft tissue was injected utilizing [place] ortho mix which includes a combination of Ropivicaine 0.5% 150mg, Bupivicaine 0.5%/Epinephrine 1:200,000 30ml, Toradol 30mg, Dexamethasone 4mg, Ketamine 10mg, Clonidine 100mcg and NSS 30ml Orthomix solution. The piriformis, external rotators and capsule were repaired to the greater trochanter through bone tunnels using #5 FiberWire. The fascia was closed using #1 Vicryl, subcutaneous tissue was closed using 2-0 Vicryl, and skin was closed with lety. Sterile dressings were applied which included Silverlon dressing. Abduction pillow was placed between the legs. The patient tolerated the procedure well and was transported to PACU in stable condition. Due to the complex nature of the procedure, the entire surgery was performed with the operational assistance of Silverio card PA-C. The retail sales assistant, under direct supervision, was involved in the actual performance of all aspects of the surgical procedure including patient positioning, hemostasis, tissue retraction, instrument management and wound closure. I attest to the content of the Intraoperative Record and any orders documented therein. Any exceptions are noted below.
[2019-03-23] MEDS ORDERED: GLYCOPYRROLATE 0.2 MG/ML VIAL ONE (08:53)
[2019-03-23] MEDS ORDERED: NEOSTIGMINE METHYLSULFATE 5 MG/5 ML SYR ONE (08:53)
--- NOTE | 2019-03-23 10:07 | Anesthesiology Progress Note ---
Date of Service March 23, 2019 Anesthesia Post Procedure Vital Signs Vital Signs: Temp Pulse Pulse Resp BP Pulse Ox 03/23/19 09:50 36.8 C 57 L 16 107/56 L 94 03/23/19 09:40 56 L 98 H 112/52 L 93 03/23/19 09:30 59 L 17 91/43 L 93 03/23/19 09:21 36.4 C L 59 L 12 107/49 L 96 03/23/19 05:33 36.9 C 90 20 156/97 H 94 Pain Intensity Left Hip: Pain Intensity: 1 Transfer of Care Handoff Completed per policy Notes Mental Status: alert / awake / arousable Patient Amnestic to Procedure: Yes Nausea / Vomiting: adequately controlled Pain: adequately controlled Airway Patency, RR, SpO2: stable & adequate BP & HR: stable & adequate Hydration State: stable & adequate Anesthetic Complications: no major complications apparent and Pt Satisfied with anesthetic care Notes: The patient is awake and comfortable. Her vitals are stable.
--- NOTE | 2019-03-23 10:32 | XRay Report ---
XR hip 1V LT w pelvis CLINICAL HISTORY: Postoperative evaluation. COMPARISON: Left hip radiographs November 18, 2018. FINDINGS: Alignment of the total left hip arthroplasty is anatomic. Acetabular screw is in place. Th ere is no periprosthetic fracture or unexpected radiopaque foreign body. There are skin lety. Righ t hip arthroplasty is noted. IMPRESSION: Expected findings following total left hip arthroplasty. ACT 112: Negative or not required by law. Electronically signed by: Damion Roy M.D. 03/23/2019 10:31 AM
[2019-03-23] MEDS ORDERED: NON-FORMULARY MEDICATION (Buprenorphine 1 PATCH) TD SCH (10:45)
[2019-03-23] MEDS ORDERED: NALOXONE HCL 0.4 MG/1 ML VIAL/CARP IV PRN (10:45)
[2019-03-23] MEDS ORDERED: METOCLOPRAMIDE HCL INJ 5 MG/ML 2 ML VIAL IV PRN (10:45)
[2019-03-23] MEDS ORDERED: MAGNESIUM HYDROXIDE SUSP 30 ML UDC PO PRN (10:45)
[2019-03-23] MEDS ORDERED: bisacodyL 10 MG SUPP PR PRN (10:45)
[2019-03-23] MEDS ORDERED: PHARMACY GLYCEMIC MGMT CONSULT PRN (11:07)
[2019-03-23] MEDS: SODIUM CHLORIDE 0.9% 1000ML 1,000 ML IV SCH ×2 (12:14→20:38)
[2019-03-23] MEDS ORDERED: CARBOHYDRATES FOR HYPOGLYCEMIA PO PRN (12:30)
[2019-03-23] MEDS ORDERED: DEXTROSE 50% 50 ML SYRINGE IV PRN (12:30)
[2019-03-23] MEDS ORDERED: GLUCAGON FOR INJ 1 MG VIAL IM PRN (12:30)
[2019-03-23] MEDS ORDERED: NovoLIN-N (NPH) PER UNIT CHARGE SQ ONE (12:30)
[2019-03-23] MEDS ORDERED: GLUCOSE 10 TABS/TUBE PO PRN (12:30)
[2019-03-23] MEDS ORDERED: GLUCOSE 40% GEL 15 GM TUBE PO PRN (12:30)
[2019-03-23] MEDS: INSULIN ASPART 100 UNITS/ML 3 ML PEN SC SCH ×3 (12:39→20:42)
[2019-03-23] MEDS ORDERED: PHARMACY GLYCEMIC MGMT CONSULT STA (12:45)
[2019-03-23] MEDS: HYDROCODONE/ACETAMOPHEN 5/325MG TAB PO PRN ×3 (13:28→22:43)
--- NOTE | 2019-03-23 14:28 | Pharmacy Report ---
Glycemic Control Consultation - Date of Service March 23, 2019 - Scope Scope: Glycemic Pharmacist consulted by Dr Yepez on 03/23 for glycemic control and to write orders per [facility] inpatient glycemic control protocol - Objective Weight: 85.593 kg Accuchecks BSG (last 24hrs): 03/23/19 03/23/19 03/23/19 05:28 09:25 12:02 POC Glucose 154 H 158 H 188 H - Recent Pertinent Medications Outpatient Anti-diabetic Regimen: * metformin 500 mg bid * A1c = 7.3 % 01/2019 Risk Factors for Insulin Resistance: * Steroids: po DXM preop * Recent Surgery: POD 0 * Diet: T2DM - Assessment & Plan Assessment & Plan: ASSESSMENT: * 88 year old now s/p hip arthroplasty. Pharmacy consulted for glycemic control postop * Patient did receive po steroids preop therefore anticipate steroid induced hyperglycemia * Will order NPH ~0.2 units/kg to help cover steroids and bolus insulin postop PLAN FOR INPATIENT GLYCEMIC CONTROL: * Holding outpatient oral diabetes medications * Basal insulin * NPH 15 units x 1 * Bolus insulin * NovoLog per scale ACHS or Q6hrs while NPO * Goal Range: Low 120 mg/dL - High 160 mg/dL * Correction Factor: 25 mg/dL/unit * Nutritional / Prandial insulin per carb ratio of 1 unit per 7 grams CHO consumed * Please note that the plan above was derived based on current level of insulin resistance and hospital stress. These recommendations are appropriate for inpatient admission only. Plan of care upon discharge will need to be reassessed to avoid potential outpatient hypo/hyperglycemia. Thank you.
--- NOTE | 2019-03-23 15:51 | Hospitalist Consultation ---
Date of Consultation March 23, 2019 Assessment & Plan (1) Degenerative joint disease of left hip: s/p left TOMMY pain management, DVT proph, d/c planning per ortho doing well, in chair, ambulating today off of oxygen already (2) Diabetes: hold oral agents, can use Novolog SS diabetic diet monitor for hypoglycemia (3) H/O peptic ulcer: continue PPI while here (4) Depression: continue home regimen, Zoloft BID (5) Insomnia: continue Mirapex, Temazepam (6) Benign essential hypertension: BP stable continue metoprolol and amlodipine History of Present Illness Reason for Consultation: medical management Requesting Physician: Dr. Yepez Attending Physician: Abebe Yepez, History of Present Illness 88 yo female with history of HTN, DM type II and severe osteoarthritis, admitted today after left TOMMY by Dr. Yepez. No complications with the surgery, EBL was 125cc. Patient doing very well post op, seen sitting in chair. She had already ambulated to the restroom twice, she was looking forward to walking in the hallway. She had some difficulty swallowing but admitted that it was with a piece of beef that was dry. She denies any chest pain/pressure, no dyspnea, no nausea. She and her family report that she was in severe, constant pain in the left hip prior to surgery. She could not last another day, the pain was so severe. She reports her pain is now resolved. Her DM is managed with oral agents, no serious issues. She checks sugars only periodically, like if she feels hypoglycemic, this is not very often. Allergies Allergy/AdvReac Type Severity Reaction Status Date / Time No Known Allergies Allergy Verified 03/23/19 05:24 Home Medications Home Medications Medication Instructions Recorded Confirmed Type aspirin 81 mg tablet,delayed 81 mg PO QAM 07/23/18 03/23/19 History release docusate sodium 50 mg capsule 50 mg PO QPM 07/23/18 03/23/19 History nystatin 100,000 unit/gram topical 1 appln TOP BID PRN 07/23/18 03/23/19 History powder psyllium husk 3.4 gram/5.4 gram 1 tbs PO QPM 07/23/18 03/23/19 History oral powder metformin 500 mg tablet 500 mg PO BID #180 tab 08/08/18 03/23/19 Rx blood sugar diagnostic #100 ea 09/22/18 02/23/19 Rx mirtazapine 30 mg tablet 30 mg PO HS #30 tab 10/22/18 03/23/19 Rx cyanocobalamin (vitamin B-12) 5,000 mcg PO QAM tab 10/26/18 03/23/19 History 5,000 mcg disintegrating tablet lancets 33 gauge #100 ea 10/26/18 02/23/19 Rx multivitamin 1 tab PO QAM 10/26/18 03/23/19 History sertraline 100 mg tablet 100 mg PO BID #90 tab 10/26/18 03/23/19 Rx levothyroxine 50 mcg tablet 50 mcg PO QAM 11/03/18 03/23/19 History ropinirole 2 mg tablet 2 mg PO HS tab 11/03/18 03/23/19 History temazepam 15 mg capsule 30 mg PO HS cap 11/03/18 03/23/19 History amlodipine 5 mg PO QAM 02/09/19 03/23/19 History atorvastatin 10 mg PO QAM 02/09/19 03/23/19 History metoprolol succinate 25 mg PO QAM 02/09/19 03/23/19 History pantoprazole 40 mg PO QAM 02/09/19 03/23/19 History buspirone 5 mg tablet 5 mg PO BID #60 tab 03/02/19 03/23/19 Rx hydrocodone 10 mg-acetaminophen 1 tab PO QID PRN #100 tab 03/05/19 03/23/19 Rx 325 mg tablet Patient History Medical History Benign essential hypertension Depression Diabetes mellitus, type 2 NIDDM Diabetic peripheral neuropathy SERGE (generalized anxiety disorder) Gait abnormality Generalized osteoarthritis of multiple sites GERD (gastroesophageal reflux disease) rare H/O peptic ulcer remote hx with GIB/received blood transfusion Hiatal hernia History of kidney stones Hyperlipidemia Hypothyroidism Insomnia Lumbar radiculopathy Obesity Pain syndrome, chronic Poor historian Restless legs syndrome Spinal stenosis, lumbar region with neurogenic claudication Urinary incontinence Surgical History H/O basal cell carcinoma excision H/O colonoscopy H/O cystoscopy H/O dilation and curettage History of ankle surgery History of bilateral knee replacement (Resolved) History of cholecystectomy (Resolved) History of esophagogastroduodenoscopy (EGD) History of kyphoplasty (Resolved) History of left cataract surgery (Resolved) History of reverse total replacement of shoulder joint (Resolved) R/L; Left reverse TSA: 06/12/17: Grde view 1, MAC#3, ETT 7.0 at [facility] History of right hip replacement (Resolved) History of surgery H/O RT NEPHROSTOMY TUBE PLACEMENT AND REMOVAL History of ureter stent Family History Father Heart disease Mother Cancer Other No family history of adverse response to anesthesia Social History Preferred Language: [place] Communication Ability: Effective 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 Beliefs That Will Affect Care: None marital status: Current Living Situation: Alone Other Information That Helps Us Care for You: No Feels Safe at Home: Yes Safety Concerns: Feels Safe At This Time Smoking Status: Never smoker Do You Dip or Chew Tobacco: No ; Second Hand Exposure: No ; Hx Alcohol Use: No Hx Substance Use: No Review of Systems Review of Systems: All systems reviewed & are unremarkable except as noted in HPI & below Constitutional: no fever, no chills, no sweats, no fatigue, no weakness and no anorexia Respiratory: no cough and no dyspnea Cardiovascular: no chest pain and no edema Gastrointestinal: no abdominal pain, no nausea, no vomiting, no constipation and no diarrhea/loose stools Musculoskeletal: + joint pain (minimal pain in left hip) Physical Exam Constitutional: WD/WN, vitals as above Eyes: PERRL, conjunctivae normal, anicteric sclerae ENMT: external ear and nose normal, oropharynx normal Neck: trachea midline, no thyromegaly Respiratory: normal respiratory effort, lungs clear to auscultation Cardiovascular: RRR, no murmur, no edema Gastrointestinal (Abdomen): normal bowel sounds, soft, nontender, no hepatosplenomegaly Musculoskeletal: Head/Neck/Chest: normocephalic and head atraumatic Extremities: strength 5/5 throughout; full ROM of extremities, no muscle atrophy, no cyanosis and no clubbing Skin: no rashes, warm and dry Neurologic: patellar DTR's 2+ bilat, sensation intact and PERRL, EOMI, accommodation nl, no face palsy, no dysarthria Psychiatric: A+Ox3, euthymic affect Lymphatic: no cervical or axillary lymphadenopathy Results & Data ([facility]) Vital Signs (Past 12 Hours) Vital Signs Temp Pulse Pulse Resp BP BP Pulse Ox 03/23/19 14:59 36.8 C 82 18 123/75 93 03/23/19 13:30 78 16 120/71 91 03/23/19 12:30 36.7 C 80 16 130/73 95 03/23/19 11:30 36.4 C L 60 16 93/55 L 95 03/23/19 11:00 36.4 C L 62 16 110/68 99 03/23/19 10:47 36.4 C L 53 L 18 100/49 L 96 03/23/19 09:50 36.8 C 57 L 16 107/56 L 94 03/23/19 09:40 56 L 98 H 112/52 L 93 03/23/19 09:30 59 L 17 91/43 L 93 03/23/19 09:21 36.4 C L 59 L 12 107/49 L 96 03/23/19 05:33 36.9 C 90 20 156/97 H 94 Medications Administered Current Inpatient Medications Hydrocodone Bitart/Acetaminophen ([place] 5/325) 1 - 2 tab PO Q4H PRN PRN Reason: Pain Stop: 04/06/19 10:44 Last Admin: 03/23/19 22:43 Dose: 2 tab Documented by: Amlodipine Besylate (Norvasc) 5 mg PO QAM [facility] Stop: 04/23/19 08:59 Atorvastatin Calcium (Lipitor) 10 mg PO QAM [facility] Stop: 04/23/19 08:59 Bisacodyl (Dulcolax) 10 mg OR DAILY PRN PRN Reason: Constipation Stop: 04/22/19 10:44 Buspirone HCl (Buspar) 5 mg PO BID [facility] Stop: 04/22/19 20:59 Last Admin: 03/23/19 20:28 Dose: 5 mg Documented by: Dextrose (Dextrose 50%) 25 - 50 ml IV UD PRN; Protocol PRN Reason: Hypoglycemia Protocol Stop: 04/22/19 12:29 Docusate Sodium (Colace) 100 mg PO BID [facility] Stop: 04/22/19 20:59 Last Admin: 03/23/19 20:28 Dose: 100 mg Documented by: Enoxaparin Sodium (Lovenox) 30 mg SQ Q24H PRATIK Stop: 04/23/19 08:59 Glucagon (Glucagen) 1 mg IM UD PRN; Protocol PRN Reason: Hypoglycemia Protocol Stop: 04/22/19 12:29 Glucose (Glucose 40%) 15 - 30 gm PO UD PRN; Protocol PRN Reason: Hypoglycemia Protocol Stop: 04/22/19 12:29 Glucose (Dex4 Glucose) 4 - 8 tabs PO UD PRN; Protocol PRN Reason: Hypoglycemia Protocol Stop: 04/22/19 12:29 Hydromorphone HCl (Dilaudid) 0.5 mg IV Q4H PRN PRN Reason: Pain Stop: 04/06/19 10:44 Sodium Chloride (Nss 1000ml) 1,000 mls @ 100 mls/hr IV .Q10H PRATIK Stop: 03/24/19 06:00 Last Admin: 03/23/19 20:38 Dose: 100 mls/hr Documented by: Cefazolin Sodium (Ancef 2000mg) 2,000 mg in 15 mls @ 3.75 mls/min IV Q8H PRATIK; Protocol Stop: 03/24/19 00:03 Last Admin: 03/23/19 16:26 Dose: 3.75 mls/min Documented by: Insulin Aspart (Novolog Flexpen) 0 units SC ACHS [facility]; Protocol Stop: 04/22/19 11:29 Last Admin: 03/23/19 20:42 Dose: 1 units Documented by: Insulin Aspart (Novolog Flexpen) 0 units SC 0000,0400 [facility]; Protocol Stop: 03/24/19 04:01 Levothyroxine Sodium (Synthroid) 50 mcg PO DAILYBB [facility] Stop: 04/23/19 06:29 Magnesium Hydroxide (Milk Of Magnesia) 30 ml PO Q6H PRN PRN Reason: Constipation Stop: 04/22/19 10:44 Metoclopramide HCl (Reglan) 10 mg IV Q6H PRN PRN Reason: Nausea And Vomiting Stop: 04/22/19 10:44 Metoprolol Succinate (Toprol Xl) 25 mg PO QAM [facility] Stop: 04/23/19 08:59 Mirtazapine (Remeron) 30 mg PO HS [facility] Stop: 04/22/19 20:59 Last Admin: 03/23/19 20:31 Dose: 30 mg Documented by: Miscellaneous (Carbohydrates For Hypoglycemia) 15 - 30 gm PO UD PRN PRN Reason: Hypoglycemia Treatment Stop: 04/22/19 12:29 Miscellaneous Information (Consult Glycemic Management Pharmacy) 1 ea N/A UD PRN PRN Reason: Consult Stop: 04/22/19 11:06 Multivitamins (Multivitamin Tab) 1 tab PO [facility] Stop: 04/23/19 08:59 Naloxone HCl (Narcan) 0.1 mg IV Q5M PRN PRN Reason: Oversedation/Resp Depression Stop: 04/22/19 10:44 Ondansetron HCl (Zofran) 4 mg IV Q6H PRN PRN Reason: Nausea And Vomiting Stop: 04/22/19 10:44 Pantoprazole Sodium (Protonix) 40 mg PO [facility] Stop: 04/23/19 08:59 Ropinirole HCl (Requip) 2 mg PO [facility] Stop: 04/22/19 20:59 Last Admin: 03/23/19 20:28 Dose: 2 mg Documented by: Sennosides (Senokot) 17.2 mg PO [facility] Stop: 04/22/19 20:59 Last Admin: 03/23/19 20:31 Dose: 17.2 mg Documented by: Sertraline HCl (Zoloft) 100 mg PO BID [facility] Stop: 04/22/19 20:59 Last Admin: 03/23/19 20:32 Dose: 100 mg Documented by: Temazepam (Restoril) 30 mg PO [facility] Stop: 04/22/19 20:59 Last Admin: 03/23/19 20:35 Dose: 30 mg Documented by: PG Care Time/CCT Total # of Minutes Spent Total Time Spent with Patient: Total time spent is greater than 50% in coordination of care (as documented) at patient's floor/unit and/or counseling patient: Coding Level of Care Code 75674 Inpt Consult Level 3 Diagnoses Degenerative joint disease of left hip M16.12 Diabetes E11.9 H/O peptic ulcer Z87.11 Depression F32.9 Insomnia G47.00 Benign essential hypertension I10
[2019-03-23] MEDS: CEFAZOLIN 2000MG 2,000 MG/15 ML SYR IV SCH (16:26)
--- NOTE | 2019-03-23 19:00 | Orthopedic Progress Note ---
Date of Service March 23, 2019 Assessment & Plan (1) Degenerative joint disease of left hip: s/p L TOMMY -ancef x 24 -DVT ppx: SCDs, TEDs, Lovenox -WBAT LLE -Posterior hip precautions -PO XR demonstrates a well aligned well fixed total hip prothesis without fracture/dislocation -am labs -DC planning Subjective Post Operative Progress Note Patient seen sitting up in bed, comfortable, denies complaints, pain well controlled, no acute issues. Review of Systems Review of Systems: All systems reviewed & are unremarkable except as noted in HPI & below Constitutional: as per Subjective / HPI Physical Exam Physical Exam: LLE NVSI +EHL/FHL/TA/GS SILT grossly, +2 DP pulse, compartments soft NT, dressing cdi. Constitutional: WD/WN, vitals as above Results & Data ([facility]) Vital Signs (Past 12 Hours) Vital Signs Temp Pulse Pulse Resp BP BP Pulse Ox 03/23/19 14:59 36.8 C 82 18 123/75 93 03/23/19 13:30 78 16 120/71 91 03/23/19 12:30 36.7 C 80 16 130/73 95 03/23/19 11:30 36.4 C L 60 16 93/55 L 95 03/23/19 11:00 36.4 C L 62 16 110/68 99 03/23/19 10:47 36.4 C L 53 L 18 100/49 L 96 03/23/19 09:50 36.8 C 57 L 16 107/56 L 94 03/23/19 09:40 56 L 98 H 112/52 L 93 03/23/19 09:30 59 L 17 91/43 L 93 03/23/19 09:21 36.4 C L 59 L 12 107/49 L 96
[2019-03-23] MEDS: ROPINIROLE HCL 1 MG TABLET PO SCH (20:28)
[2019-03-23] MEDS: DOCUSATE SODIUM 100 MG CAP PO SCH (20:28)
[2019-03-23] MEDS: SENNA 8.6 MG TAB PO SCH (20:31)
[2019-03-23] MEDS: MIRTAZAPINE TAB 15 MG TAB PO SCH (20:31)
[2019-03-23] MEDS: SERTRALINE HCL 100 MG TABLET PO SCH (20:32)
[2019-03-23] MEDS: TEMAZEPAM 15 MG CAPSULE PO SCH (20:35)
[2019-03-24] MEDS: CEFAZOLIN 2000MG 2,000 MG/15 ML SYR IV SCH (00:08)
[2019-03-24] MEDS: INSULIN ASPART 100 UNITS/ML 3 ML PEN SC SCH ×6 (00:40→21:40)
[2019-03-24 05:23] LABS: Hematocrit (blood only) 31.3 % (37-47); Hemoglobin 9.7 g/dL (12.0-16.0); Immature Granulocytes # (auto) 0.05 K/uL (0.00-0.02); Immature Granulocytes % (auto) 0.8 %; Lymphocytes # (auto) 0.74 K/uL (1.2-3.4); Lymphocytes % (auto) 11.9 %; Mean Corpuscular Hemoglobin 27.2 pg (25-34); Mean Corpuscular Volume 87.7 fL (80-100); Mean Platelet Volume 10.9 fL (7.4-10.4); Monocytes # (auto) 1.25 K/uL (0.11-0.59); Neutrophils % (auto) 67.3 %; Platelet Count 145 K/uL (130-400); RDW Coefficient of Variation 14.6 % (11.5-14.5); RDW Standard Deviation 47.2 fL (36.4-46.3); Red Blood Count 3.57 M/uL (4.2-5.4); White Blood Count 6.24 K/uL (4.8-10.8)
[2019-03-24 05:47] LABS: BUN Creatinine Ratio 28.7 (10-20); Calcium 8.4 mg/dl (8.5-10.1); Creatinine Clr Calc Pharmacy 57.5 ml/min; Est GFR (African American) 90.3; Est GFR (Non-African American) 77.9; Potassium 3.8 mmol/L (3.5-5.1)
[2019-03-24] MEDS: LEVOTHYROXINE SODIUM 50 MCG TABLET PO SCH (06:23)
--- NOTE | 2019-03-24 07:32 | Orthopedic Progress Note ---
Date of Service March 24, 2019 Assessment & Plan (1) Degenerative joint disease of left hip: s/p L TOMMY POD#1 -ancef x 24 -DVT ppx: SCDs, TEDs, Lovenox -WBAT LLE -Posterior hip precautions -PO XR demonstrates a well aligned well fixed total hip prothesis without fracture/dislocation -am labs - hgb 9.7 -DC planning Subjective Post Operative Progress Note Patient seen sitting up in bed, comfortable, denies complaints, pain well contr olled, no acute issues. Denies F/C/N/V/SOP/CP. Review of Systems Review of Systems: All systems reviewed & are unremarkable except as noted in HPI & below Constitutional: as per Subjective / HPI Physical Exam Physical Exam: LLE NVSI +EHL/FHL/TA/GS SILT grossly, +2 DP pulse, compartments soft NT, dressing cdi. Constitutional: WD/WN, vitals as above Results & Data ([facility]) Vital Signs (Past 12 Hours) Vital Signs Temp Pulse Resp BP BP Pulse Ox 03/24/19 07:00 36.5 C 85 16 118/66 91 03/24/19 04:20 36.4 C L 82 15 120/71 91 03/23/19 22:54 36.4 C L 77 16 122/69 92 Laboratory Results 03/24/19 03/24/19 03/24/19 Range/Units 04:38 04:38 04:16 WBC 6.24 (4.8-10.8) K/uL RBC 3.57 L (4.2-5.4) M/uL Hgb 9.7 L (12.0-16.0) g/dL Hct 31.3 L (37-47) % MCV 87.7 (80-100) fL MCH 27.2 (25-34) pg MCHC 31.0 L (32-36) g/dL RDW Std Deviation 47.2 H (36.4-46.3) fL RDW Coeff of Romina 14.6 H (11.5-14.5) % Plt Count 145 (130-400) K/uL MPV 10.9 H (7.4-10.4) fL Immature Gran % (Auto) 0.8 % Neut % (Auto) 67.3 % Lymph % (Auto) 11.9 % [place] % (Auto) 20.0 % Eos % (Auto) 0.0 % Baso % (Auto) 0.0 % Immature Gran # (Auto) 0.05 H (0.00-0.02) K/uL Neut # (Auto) 4.20 (1.4-6.5) K/uL Lymph # (Auto) 0.74 L (1.2-3.4) K/uL [place] # (Auto) 1.25 H (0.11-0.59) K/uL Eos # (Auto) 0.00 (0-0.5) K/uL Baso # (Auto) 0.00 (0-0.2) K/uL Sodium 140 (136-145) mmol/L Potassium 3.8 (3.5-5.1) mmol/L Chloride 107 (98-107) mmol/L Carbon Dioxide 30 (21-32) mmol/L Anion Gap 3.0 (3-11) BUN 20 H (7-18) mg/dl Creatinine 0.70 (0.6-1.2) mg/dl Est Cr Clr Drug Dosing 57.5 ml/min Est GFR ( Amer) 90.3 Est GFR (Non-Af Amer) 77.9 BUN/Creatinine Ratio 28.7 H (10-20) Glucose 158 H (70-99) mg/dl POC Glucose 162 H (70-99) mg/dl Calcium 8.4 L (8.5-10.1) mg/dl 03/24/19 03/23/19 03/23/19 Range/Units 00:11 20:41 16:52 WBC (4.8-10.8) K/uL RBC (4.2-5.4) M/uL Hgb (12.0-16.0) g/dL Hct (37-47) % MCV (80-100) fL MCH (25-34) pg MCHC (32-36) g/dL RDW Std Deviation (36.4-46.3) fL RDW Coeff of Romina (11.5-14.5) % Plt Count (130-400) K/uL MPV (7.4-10.4) fL Immature Gran % (Auto) % Neut % (Auto) % Lymph % (Auto) % [place] % (Auto) % Eos % (Auto) % Baso % (Auto) % Immature Gran # (Auto) (0.00-0.02) K/uL Neut # (Auto) (1.4-6.5) K/uL Lymph # (Auto) (1.2-3.4) K/uL [place] # (Auto) (0.11-0.59) K/uL Eos # (Auto) (0-0.5) K/uL Baso # (Auto) (0-0.2) K/uL Sodium (136-145) mmol/L Potassium (3.5-5.1) mmol/L Chloride (98-107) mmol/L Carbon Dioxide (21-32) mmol/L Anion Gap (3-11) BUN (7-18) mg/dl Creatinine (0.6-1.2) mg/dl Est Cr Clr Drug Dosing ml/min Est GFR ( Amer) Est GFR (Non-Af Amer) BUN/Creatinine Ratio (10-20) Glucose (70-99) mg/dl POC Glucose 136 H 134 H 180 H (70-99) mg/dl Calcium (8.5-10.1) mg/dl 03/23/19 03/23/19 Range/Units 12:02 09:25 WBC (4.8-10.8) K/uL RBC (4.2-5.4) M/uL Hgb (12.0-16.0) g/dL Hct (37-47) % MCV (80-100) fL MCH (25-34) pg MCHC (32-36) g/dL RDW Std Deviation (36.4-46.3) fL RDW Coeff of Romina (11.5-14.5) % Plt Count (130-400) K/uL MPV (7.4-10.4) fL Immature Gran % (Auto) % Neut % (Auto) % Lymph % (Auto) % [place] % (Auto) % Eos % (Auto) % Baso % (Auto) % Immature Gran # (Auto) (0.00-0.02) K/uL Neut # (Auto) (1.4-6.5) K/uL Lymph # (Auto) (1.2-3.4) K/uL [place] # (Auto) (0.11-0.59) K/uL Eos # (Auto) (0-0.5) K/uL Baso # (Auto) (0-0.2) K/uL Sodium (136-145) mmol/L Potassium (3.5-5.1) mmol/L Chloride (98-107) mmol/L Carbon Dioxide (21-32) mmol/L Anion Gap (3-11) BUN (7-18) mg/dl Creatinine (0.6-1.2) mg/dl Est Cr Clr Drug Dosing ml/min Est GFR ( Amer) Est GFR (Non-Af Amer) BUN/Creatinine Ratio (10-20) Glucose (70-99) mg/dl POC Glucose 188 H 158 H (70-99) mg/dl Calcium (8.5-10.1) mg/dl
--- NOTE | 2019-03-24 08:06 | Anesthesiology Progress Note ---
Date of Service March 24, 2019 Anesthesia Post Procedure Vital Signs Vital Signs: Temp Pulse Pulse Resp BP BP Pulse Ox 03/24/19 07:00 36.5 C 85 16 118/66 91 03/24/19 04:20 36.4 C L 82 15 120/71 91 03/23/19 22:54 36.4 C L 77 16 122/69 92 03/23/19 19:00 36.3 C L 76 18 124/60 97 03/23/19 18:57 36.8 C 78 17 117/63 93 03/23/19 14:59 36.8 C 82 18 123/75 93 03/23/19 13:30 78 16 120/71 91 03/23/19 12:30 36.7 C 80 16 130/73 95 03/23/19 11:30 36.4 C L 60 16 93/55 L 95 03/23/19 11:00 36.4 C L 62 16 110/68 99 03/23/19 10:47 36.4 C L 53 L 18 100/49 L 96 03/23/19 09:50 36.8 C 57 L 16 107/56 L 94 03/23/19 09:40 56 L 98 H 112/52 L 93 03/23/19 09:30 59 L 17 91/43 L 93 03/23/19 09:21 36.4 C L 59 L 12 107/49 L 96 Pain Intensity Left Hip: Pain Intensity: 5 Notes Mental Status: alert / awake / arousable and participated in evaluation Patient Amnestic to Procedure: Yes Nausea / Vomiting: see Notes below Pain: adequately controlled Airway Patency, RR, SpO2: stable & adequate BP & HR: stable & adequate Hydration State: stable & adequate Anesthetic Complications: no major complications apparent and Pt Satisfied with anesthetic care
[2019-03-24] MEDS: PANTOprazole 40 MG TAB PO SCH (08:31)
[2019-03-24] MEDS: METOPROLOL SUCC 25MG EXT REL TAB PO SCH (08:31)
[2019-03-24] MEDS: SERTRALINE HCL 100 MG TABLET PO SCH ×2 (08:31→21:36)
[2019-03-24] MEDS: AMLODIPINE BESYLATE 5 MG TAB PO SCH (08:31)
[2019-03-24] MEDS: ATORVASTATIN 10 MG TAB PO SCH (08:31)
[2019-03-24] MEDS: MULTIVITAMIN TAB PO SCH (08:31)
[2019-03-24] MEDS: ENOXAPARIN INJ 30 MG/0.3 ML SYR SQ SCH (08:32)
[2019-03-24] MEDS: DOCUSATE SODIUM 100 MG CAP PO SCH ×2 (08:32→21:36)
[2019-03-24] MEDS: HYDROCODONE/ACETAMOPHEN 5/325MG TAB PO PRN ×4 (08:40→21:32)
--- NOTE | 2019-03-24 10:47 | Hospitalist Progress Note ---
Date of Service March 24, 2019 Assessment & Plan (1) Degenerative joint disease of left hip: s/p left TOMMY POD 1, doing great with therapy, pain is minimal DVT proph, d/c planning per ortho medically stable to go to SNF rehab recommend following Hb one more day (2) Diabetes: hold oral agents, can use Novolog SS diabetic diet monitor for hypoglycemia, no episodes can resume oral agents on discharge (3) H/O peptic ulcer: continue PPI while here no dyspepsia or abdominal pain currently (4) Depression: continue home regimen, Zoloft BID (5) Insomnia: continue Mirapex, Temazepam slept okay last night (6) Benign essential hypertension: BP stable continue metoprolol and amlodipine (7) Acute blood loss as cause of postoperative anemia: Hb down to 9.7, BP stable, no further blood loss anticipated will repeat Hb in the morning Subjective patient feeling great, no issues over night says that the pain in her left hip is 90% better since the operation ambulating with walker with help of therapy eating well, breathing well, no chest pain/pressure reviewed labs, Hb down to 9.7 but blood pressure stable Cr and electrolytes stable she is hoping to get out of hospital tomorrow Review of Systems Review of Systems: All systems reviewed & are unremarkable except as noted in HPI & below Musculoskeletal: + joint pain (Left hip, minimal pain) Physical Exam Constitutional: WD/WN, vitals as above Eyes: PERRL, conjunctivae normal, anicteric sclerae ENMT: external ear and nose normal, oropharynx normal Neck: trachea midline, no thyromegaly Respiratory: normal respiratory effort, lungs clear to auscultation Cardiovascular: RRR, no murmur, no edema Gastrointestinal (Abdomen): normal bowel sounds, soft, nontender, no hepatosplenomegaly Musculoskeletal: Head/Neck/Chest: normocephalic and head atraumatic Extremities: strength 5/5 throughout; full ROM of extremities, no muscle atrophy, no cyanosis and no clubbing Skin: no rashes, warm and dry Neurologic: patellar DTR's 2+ bilat, sensation intact and PERRL, EOMI, accommodation nl, no face palsy, no dysarthria Psychiatric: A+Ox3, euthymic affect Lymphatic: no cervical or axillary lymphadenopathy Results & Data ([facility]) Vital Signs (Past 12 Hours) Vital Signs Temp Pulse Resp BP BP Pulse Ox 03/24/19 07:00 36.5 C 85 16 118/66 91 03/24/19 04:20 36.4 C L 82 15 120/71 91 03/23/19 22:54 36.4 C L 77 16 122/69 92 Laboratory Results Laboratory Results - last 24 hr 03/23/19 03/23/19 03/23/19 12:02 16:52 20:41 WBC RBC Hgb Hct MCV MCH MCHC RDW Std Deviation RDW Coeff of Romina Plt Count MPV Immature Gran % (Auto) Neut % (Auto) Lymph % (Auto) [place] % (Auto) Eos % (Auto) Baso % (Auto) Immature Gran # (Auto) Neut # (Auto) Lymph # (Auto) [place] # (Auto) Eos # (Auto) Baso # (Auto) Sodium Potassium Chloride Carbon Dioxide Anion Gap BUN Creatinine Est Cr Clr Drug Dosing Est GFR ( Amer) Est GFR (Non-Af Amer) BUN/Creatinine Ratio Glucose POC Glucose 188 H 180 H 134 H Calcium 03/24/19 03/24/19 03/24/19 00:11 04:16 04:38 WBC 6.24 RBC 3.57 L Hgb 9.7 L Hct 31.3 L MCV 87.7 MCH 27.2 MCHC 31.0 L RDW Std Deviation 47.2 H RDW Coeff of Romina 14.6 H Plt Count 145 MPV 10.9 H Immature Gran % (Auto) 0.8 Neut % (Auto) 67.3 Lymph % (Auto) 11.9 [place] % (Auto) 20.0 Eos % (Auto) 0.0 Baso % (Auto) 0.0 Immature Gran # (Auto) 0.05 H Neut # (Auto) 4.20 Lymph # (Auto) 0.74 L [place] # (Auto) 1.25 H Eos # (Auto) 0.00 Baso # (Auto) 0.00 Sodium Potassium Chloride Carbon Dioxide Anion Gap BUN Creatinine Est Cr Clr Drug Dosing Est GFR ( Amer) Est GFR (Non-Af Amer) BUN/Creatinine Ratio Glucose POC Glucose 136 H 162 H Calcium 03/24/19 03/24/19 04:38 08:02 WBC RBC Hgb Hct MCV MCH MCHC RDW Std Deviation RDW Coeff of Romina Plt Count MPV Immature Gran % (Auto) Neut % (Auto) Lymph % (Auto) [place] % (Auto) Eos % (Auto) Baso % (Auto) Immature Gran # (Auto) Neut # (Auto) Lymph # (Auto) [place] # (Auto) Eos # (Auto) Baso # (Auto) Sodium 140 Potassium 3.8 Chloride 107 Carbon Dioxide 30 Anion Gap 3.0 BUN 20 H Creatinine 0.70 Est Cr Clr Drug Dosing 57.5 Est GFR ( Amer) 90.3 Est GFR (Non-Af Amer) 77.9 BUN/Creatinine Ratio 28.7 H Glucose 158 H POC Glucose 159 H Calcium 8.4 L Medications Administered Current Inpatient Medications Hydrocodone Bitart/Acetaminophen ([place] 5/325) 1 - 2 tab PO Q4H PRN PRN Reason: Pain Stop: 04/06/19 10:44 Last Admin: 03/24/19 08:40 Dose: 2 tab Documented by: Amlodipine Besylate (Norvasc) 5 mg PO QAM [facility] Stop: 04/23/19 08:59 Last Admin: 03/24/19 08:31 Dose: 5 mg Documented by: Atorvastatin Calcium (Lipitor) 10 mg PO QAM [facility] Stop: 04/23/19 08:59 Last Admin: 03/24/19 08:31 Dose: 10 mg Documented by: Bisacodyl (Dulcolax) 10 mg [place] DAILY PRN PRN Reason: Constipation Stop: 04/22/19 10:44 Buspirone HCl (Buspar) 5 mg PO BID [facility] Stop: 04/22/19 20:59 Last Admin: 03/24/19 08:32 Dose: 5 mg Documented by: Dextrose (Dextrose 50%) 25 - 50 ml IV UD PRN; Protocol PRN Reason: Hypoglycemia Protocol Stop: 04/22/19 12:29 Docusate Sodium (Colace) 100 mg PO BID [facility] Stop: 04/22/19 20:59 Last Admin: 03/24/19 08:32 Dose: 100 mg Documented by: Enoxaparin Sodium (Lovenox) 30 mg SQ Q24H [facility] Stop: 04/23/19 08:59 Last Admin: 03/24/19 08:32 Dose: 30 mg Documented by: Glucagon (Glucagen) 1 mg IM UD PRN; Protocol PRN Reason: Hypoglycemia Protocol Stop: 04/22/19 12:29 Glucose (Glucose 40%) 15 - 30 gm PO UD PRN; Protocol PRN Reason: Hypoglycemia Protocol Stop: 04/22/19 12:29 Glucose (Dex4 Glucose) 4 - 8 tabs PO UD PRN; Protocol PRN Reason: Hypoglycemia Protocol Stop: 04/22/19 12:29 Hydromorphone HCl (Dilaudid) 0.5 mg IV Q4H PRN PRN Reason: Pain Stop: 04/06/19 10:44 Insulin Aspart (Novolog Flexpen) 0 units [facility]; Protocol Stop: 04/22/19 11:29 Last Admin: 03/24/19 08:32 Dose: 7 units Documented by: Levothyroxine S[facility] ([facility]throid) [facility]: 04/23/19 06:29 Last Admin: 03/24/19 06:23 Dose: 50 mcg Documented by: Magnesium Hydroxide (Milk Of Magnesia) 30 ml PO Q6H PRN PRN Reason: Constipation Stop: 04/22/19 10:44 Metoclopramide HCl (Reglan) 10 mg IV Q6H PRN PRN Reason: Nausea And Vomiting Stop: 04/22/19 10:44 Metoprolol Succinate (Toprol Xl) 25 mg PO [facility] Stop: 04/23/19 08:59 Last Admin: 03/24/19 08:31 Dose: 25 mg Documented by: Mirtazapine (Remeron) 30 mg PO [facility] Stop: 04/22/19 20:59 Last Admin: 03/23/19 20:31 Dose: 30 mg Documented by: Miscellaneous (Carbohydrates For Hypoglycemia) 15 - 30 gm PO UD PRN PRN Reason: Hypoglycemia Treatment Stop: 04/22/19 12:29 Miscellaneous Information (Consult Glycemic Management Pharmacy) 1 ea N/A UD PRN PRN Reason: Consult Stop: 04/22/19 11:06 Multivitamins (Multivitamin Tab) 1 tab PO [facility] Stop: 04/23/19 08:59 Last Admin: 03/24/19 08:31 Dose: 1 tab Documented by: Naloxone HCl (Narcan) 0.1 mg IV Q5M PRN PRN Reason: Oversedation/Resp Depression Stop: 04/22/19 10:44 Ondansetron HCl (Zofran) 4 mg IV Q6H PRN PRN Reason: Nausea And Vomiting Stop: 04/22/19 10:44 Pantoprazole Sodium ([facility]tonix) [facility] Stop: 04/23/19 08:59 Last Admin: 03/24/19 08:31 Dose: 40 mg Documented by: Ropinirole HCl (Requip) 2 mg PO [facility] Stop: 04/22/19 20:59 Last Admin: 03/23/19 20:28 Dose: 2 mg Documented by: Sennosides (Senokot) 17.2 mg PO [facility] Stop: 04/22/19 20:59 Last Admin: 03/23/19 20:31 Dose: 17.2 mg Documented by: Sertraline HCl (Zoloft) 100 mg PO BID [facility] Stop: 04/22/19 20:59 Last Admin: 03/24/19 08:31 Dose: 100 mg Documented by: Temazepam (Restoril) 30 mg PO [facility] Stop: 04/22/19 20:59 Last Admin: 03/23/19 20:35 Dose: 30 mg Documented by: PG Care Time/CCT Total # of Minutes Spent Total Time Spent with Patient: Total time spent is greater than 50% in coordination of care (as documented) at patient's floor/unit and/or counseling patient: Coding Level of Care Code 75633 Subseq Hosp Care Lvl 2 Diagnoses Degenerative joint disease of left hip M16.12 Diabetes E11.9 H/O peptic ulcer Z87.11 Depression F32.9 Insomnia G47.00 Benign essential hypertension I10 Acute blood loss as cause of postoperative anemia D62
[2019-03-24] MEDS: HYDROmorphone INJ 0.5 MG/0.5 ML SYR IV PRN ×3 (11:52→21:45)
--- NOTE | 2019-03-24 12:29 | Pharmacy Report ---
Pharmacy Glycemic Short Note 2 - Date of Service March 24, 2019 - Glycemic Short BSG Results (Last 24 hours): 03/23/19 03/23/19 03/24/19 16:52 20:41 00:11 Glucose POC Glucose 180 H 134 H 136 H 03/24/19 03/24/19 03/24/19 04:16 04:38 08:02 Glucose 158 H POC Glucose 162 H 159 H 03/24/19 12:05 Glucose POC Glucose 150 H ASSESSMENT: 03/24 * Patient received total of 32 units yesterday, of which 15 units were NPH * Fasting BSG slightly elevated at 158 mg/dL, however appropriate for age * Will loosen CR with breakfast as anticipate steroids to be wearing off - patient continues to tolerate diet plan to restart home metformin with dinner 2 * 88 year old now s/p hip arthroplasty. Pharmacy consulted for glycemic control postop * Patient did receive po steroids preop therefore anticipate steroid induced hyperglycemia * Will order NPH ~0.2 units/kg to help cover steroids and bolus insulin postop PLAN FOR INPATIENT GLYCEMIC CONTROL: * Holding outpatient oral diabetes medications - plan to restart with dinner 2/ * Basal insulin * hold * Bolus insulin - loosen with addition of metformin with dinner (utilize CF only) * NovoLog per scale ACHS or Q6hrs while NPO * Goal Range: Low 120 mg/dL - High 160 mg/dL * Correction Factor: 30 mg/dL/unit * Nutritional / Prandial insulin per carb ratio of 1 unit per -- grams CHO consumed * Please note that the plan above was derived based on current level of insulin resistance and hospital stress. These recommendations are appropriate for inpatient admission only. Plan of care upon discharge will need to be reassessed to avoid potential outpatient hypo/hyperglycemia. Thank you. PLAN FOR DISCHARGE: * A1c = 7.3% - goal for <7% * A1c close to goal - would recommend continuation of home diabetic medications on discharge as long as patient does not report low BSGs * Encourage healthy lifestyle (diet, exercise) and disease self management (SMBG)
[2019-03-24] MEDS: METFORMIN HCL 500 MG TAB PO SCH (17:54)
[2019-03-24] MEDS: ROPINIROLE HCL 1 MG TABLET PO SCH (21:36)
[2019-03-24] MEDS: MIRTAZAPINE TAB 15 MG TAB PO SCH (21:36)
[2019-03-24] MEDS: SENNA 8.6 MG TAB PO SCH (21:36)
[2019-03-24] MEDS: TEMAZEPAM 15 MG CAPSULE PO SCH (21:36)
[2019-03-25 05:12] LABS: Basophils # (auto) 0.01 K/uL (0-0.2); Basophils % (auto) 0.2 %; Eosinophils # (auto) 0.07 K/uL (0-0.5); Eosinophils % (auto) 1.5 %; Hemoglobin 9.7 g/dL (12.0-16.0); Immature Granulocytes # (auto) 0.03 K/uL (0.00-0.02); Immature Granulocytes % (auto) 0.7 %; Lymphocytes # (auto) 0.87 K/uL (1.2-3.4); Lymphocytes % (auto) 19.1 %; Mean Corpuscular Hemoglobin 26.9 pg (25-34); Mean Corpuscular Hgb Conc 30.3 g/dL (32-36); Mean Corpuscular Volume 88.6 fL (80-100); Mean Platelet Volume 11.1 fL (7.4-10.4); Monocytes # (auto) 1.14 K/uL (0.11-0.59); Neutrophils # (auto) 2.44 K/uL (1.4-6.5); Neutrophils % (auto) 53.5 %; Nucleated RBC # (auto) 0.02 K/uL (0-0); Nucleated RBC % (auto) 0.5 %; Platelet Count 148 K/uL (130-400); RDW Standard Deviation 48.8 fL (36.4-46.3); Red Blood Count 3.61 M/uL (4.2-5.4); White Blood Count 4.56 K/uL (4.8-10.8)
[2019-03-25 05:47] LABS: BUN Creatinine Ratio 24.6 (10-20); Calcium 8.4 mg/dl (8.5-10.1); Creatinine Clr Calc Pharmacy 73.1 ml/min; Est GFR (African American) 97.7; Est GFR (Non-African American) 84.3
[2019-03-25] MEDS: HYDROCODONE/ACETAMOPHEN 5/325MG TAB PO PRN ×3 (05:52→15:45)
[2019-03-25] MEDS: LEVOTHYROXINE SODIUM 50 MCG TABLET PO SCH (05:53)
[2019-03-25] MEDS: SERTRALINE HCL 100 MG TABLET PO SCH (07:27)
[2019-03-25] MEDS: AMLODIPINE BESYLATE 5 MG TAB PO SCH (07:27)
[2019-03-25] MEDS: PANTOprazole 40 MG TAB PO SCH (07:27)
[2019-03-25] MEDS: MULTIVITAMIN TAB PO SCH (07:27)
[2019-03-25] MEDS: DOCUSATE SODIUM 100 MG CAP PO SCH (07:28)
[2019-03-25] MEDS: ATORVASTATIN 10 MG TAB PO SCH (07:28)
[2019-03-25] MEDS: ENOXAPARIN INJ 30 MG/0.3 ML SYR SQ SCH (07:28)
[2019-03-25] MEDS: METFORMIN HCL 500 MG TAB PO SCH ×2 (07:28→17:20)
[2019-03-25] MEDS: METOPROLOL SUCC 25MG EXT REL TAB PO SCH (07:28)
[2019-03-25] MEDS: INSULIN ASPART 100 UNITS/ML 3 ML PEN SC SCH ×2 (07:29→12:51)
--- NOTE | 2019-03-25 08:19 | Orthopedic Progress Note ---
Date of Service March 25, 2019 Assessment & Plan (1) Degenerative joint disease of left hip: s/p L TOMMY POD#2 -ancef x 24 -DVT ppx: SCDs, JENNIFERs, Lovenox -WBAT LLE -Posterior hip precautions -PO XR demonstrates a well aligned well fixed total hip prothesis without fracture/dislocation -am labs - hgb 9.7 -DC planning - rehab when bed available POD#1 -ancef x 24 -DVT ppx: SCDs, TEDs, Lovenox -WBAT LLE -Posterior hip precautions -PO XR demonstrates a well aligned well fixed total hip prothesis without fracture/dislocation -am labs - hgb 9.7 -DC planning Subjective Post Operative Progress Note Patient seen sitting up in bed, comfortable, denies complaints, pain well controlled, no acute issues. Denies f/c/n/v/SOB/CP Review of Systems Review of Systems: All systems reviewed & are unremarkable except as noted in HPI & below Constitutional: as per Subjective / HPI Physical Exam Physical Exam: LLE NVSI +EHL/FHL/TA/GS SILT grossly, +2 DP pulse, compartments soft NT, dressing cdi. Constitutional: WD/WN, vitals as above Results & Data ([facility]) Vital Signs (Past 12 Hours) Vital Signs Temp Pulse Resp BP Pulse Ox 03/25/19 05:56 36.8 C 94 H 16 147/77 H 95 03/24/19 23:35 36.3 C L 87 16 107/67 92 Laboratory Results 03/25/19 03/25/19 03/25/19 Range/Units 06:30 04:33 04:33 WBC 4.56 L (4.8-10.8) K/uL RBC 3.61 L (4.2-5.4) M/uL Hgb 9.7 L (12.0-16.0) g/dL Hct 32.0 L (37-47) % MCV 88.6 (80-100) fL MCH 26.9 (25-34) pg MCHC 30.3 L (32-36) g/dL RDW Std Deviation 48.8 H (36.4-46.3) fL RDW Coeff of Romina 15.0 H (11.5-14.5) % Plt Count 148 (130-400) K/uL MPV 11.1 H (7.4-10.4) fL Immature Gran % (Auto) 0.7 % Neut % (Auto) 53.5 % Lymph % (Auto) 19.1 % [place] % (Auto) 25.0 % Eos % (Auto) 1.5 % Baso % (Auto) 0.2 % Immature Gran # (Auto) 0.03 H (0.00-0.02) K/uL Neut # (Auto) 2.44 (1.4-6.5) K/uL Lymph # (Auto) 0.87 L (1.2-3.4) K/uL [place] # (Auto) 1.14 H (0.11-0.59) K/uL Eos # (Auto) 0.07 (0-0.5) K/uL Baso # (Auto) 0.01 (0-0.2) K/uL Absolute Nucleated RBC 0.02 H (0-0) K/uL Nucleated RBC % (auto) 0.5 % Sodium 139 (136-145) mmol/L Potassium 4.0 (3.5-5.1) mmol/L Chloride 106 (98-107) mmol/L Carbon Dioxide 30 (21-32) mmol/L Anion Gap 3.0 (3-11) BUN 13 (7-18) mg/dl Creatinine 0.55 L (0.6-1.2) mg/dl Est Cr Clr Drug Dosing 73.1 ml/min Est GFR ( Amer) 97.7 Est GFR (Non-Af Amer) 84.3 BUN/Creatinine Ratio 24.6 H (10-20) Glucose 153 H (70-99) mg/dl POC Glucose 162 H (70-99) mg/dl Calcium 8.4 L (8.5-10.1) mg/dl 03/25/19 03/24/19 03/24/19 Range/Units 04:09 21:04 21:03 WBC (4.8-10.8) K/uL RBC (4.2-5.4) M/uL Hgb (12.0-16.0) g/dL Hct (37-47) % MCV (80-100) fL MCH (25-34) pg MCHC (32-36) g/dL RDW Std Deviation (36.4-46.3) fL RDW Coeff of Romina (11.5-14.5) % Plt Count (130-400) K/uL MPV (7.4-10.4) fL Immature Gran % (Auto) % Neut % (Auto) % Lymph % (Auto) % [place] % (Auto) % Eos % (Auto) % Baso % (Auto) % Immature Gran # (Auto) (0.00-0.02) K/uL Neut # (Auto) (1.4-6.5) K/uL Lymph # (Auto) (1.2-3.4) K/uL [place] # (Auto) (0.11-0.59) K/uL Eos # (Auto) (0-0.5) K/uL Baso # (Auto) (0-0.2) K/uL Absolute Nucleated RBC (0-0) K/uL Nucleated RBC % (auto) % Sodium (136-145) mmol/L Potassium (3.5-5.1) mmol/L Chloride (98-107) mmol/L Carbon Dioxide (21-32) mmol/L Anion Gap (3-11) BUN (7-18) mg/dl Creatinine (0.6-1.2) mg/dl Est Cr Clr Drug Dosing ml/min Est GFR ( Amer) Est GFR (Non-Af Amer) BUN/Creatinine Ratio (10-20) Glucose (70-99) mg/dl POC Glucose 148 H 323 H* 329 H* (70-99) mg/dl Calcium (8.5-10.1) mg/dl 03/24/19 03/24/19 Range/Units 16:56 12:05 WBC (4.8-10.8) K/uL RBC (4.2-5.4) M/uL Hgb (12.0-16.0) g/dL Hct (37-47) % MCV (80-100) fL MCH (25-34) pg MCHC (32-36) g/dL RDW Std Deviation (36.4-46.3) fL RDW Coeff of Romina (11.5-14.5) % Plt Count (130-400) K/uL MPV (7.4-10.4) fL Immature Gran % (Auto) % Neut % (Auto) % Lymph % (Auto) % [place] % (Auto) % Eos % (Auto) % Baso % (Auto) % Immature Gran # (Auto) (0.00-0.02) K/uL Neut # (Auto) (1.4-6.5) K/uL Lymph # (Auto) (1.2-3.4) K/uL [place] # (Auto) (0.11-0.59) K/uL Eos # (Auto) (0-0.5) K/uL Baso # (Auto) (0-0.2) K/uL Absolute Nucleated RBC (0-0) K/uL Nucleated RBC % (auto) % Sodium (136-145) mmol/L Potassium (3.5-5.1) mmol/L Chloride (98-107) mmol/L Carbon Dioxide (21-32) mmol/L Anion Gap (3-11) BUN (7-18) mg/dl Creatinine (0.6-1.2) mg/dl Est Cr Clr Drug Dosing ml/min Est GFR ( Amer) Est GFR (Non-Af Amer) BUN/Creatinine Ratio (10-20) Glucose (70-99) mg/dl POC Glucose 155 H 150 H (70-99) mg/dl Calcium (8.5-10.1) mg/dl
--- NOTE | 2019-03-25 09:40 | Pharmacy Report ---
Pharmacy Glycemic Short Note 2 - Date of Service March 25, 2019 - Glycemic Short BSG Results (Last 24 hours): 03/24/19 03/24/19 03/24/19 12:05 16:56 21:03 Glucose POC Glucose 150 H 155 H 329 H* 03/24/19 03/25/19 03/25/19 21:04 04:09 04:33 Glucose 153 H POC Glucose 323 H* 148 H 03/25/19 06:30 Glucose POC Glucose 162 H ASSESSMENT: 03/25 * Patient received total of 20 units of insulin yesterday, all of which were bolus insulin * Restarted home metformin last evening and removed CR - BSG at HS elevated, however not clear if taken after patient ate * Will add CR back in for this morning for additional coverage while on metformin 03/24 * Patient received total of 32 units yesterday, of which 15 units were NPH * Fasting BSG slightly elevated at 158 mg/dL, however appropriate for age * Will loosen CR with breakfast as anticipate steroids to be wearing off - patient continues to tolerate diet plan to restart home metformin with dinner 03/23 * 88 year old now s/p hip arthroplasty. Pharmacy consulted for glycemic control postop * Patient did receive po steroids preop therefore anticipate steroid induced hyperglycemia * Will order NPH ~0.2 units/kg to help cover steroids and bolus insulin postop PLAN FOR INPATIENT GLYCEMIC CONTROL: * Holding outpatient oral diabetes medications - continue metformin 500 mg bid * Basal insulin * hold * Bolus insulin * NovoLog per scale ACHS or Q6hrs while NPO * Goal Range: Low 120 mg/dL - High 160 mg/dL * Correction Factor: 30 mg/dL/unit * Nutritional / Prandial insulin per carb ratio of 1 unit per 12 grams CHO consumed * Please note that the plan above was derived based on current level of insulin resistance and hospital stress. These recommendations are appropriate for inpatient admission only. Plan of care upon discharge will need to be reassessed to avoid potential outpatient hypo/hyperglycemia. Thank you. PLAN FOR DISCHARGE: * A1c = 7.3% - goal for <7% * A1c close to goal - would recommend continuation of home diabetic medications on discharge as long as patient does not report low BSGs * Encourage healthy lifestyle (diet, exercise) and disease self management (SMBG)
[2019-03-25] MEDS: HYDROmorphone INJ 0.5 MG/0.5 ML SYR IV PRN (17:17)
--- NOTE | 2019-03-27 08:11 | Discharge Summary ---
Date of Service March 27, 2019 Admission HPI Per Admitting Provider The patient is a 88 year old female who presents with complaints of severe left hip pain and DJD. The patient has failed outpatient conservative treatments to this point which included intra-articular corticosteroid injection and a home exercise/walking program. Patient unable to take NSAIDs secondary to previous GI ulcer/bleed. The patient's pain and limited function have progressed to the point where they severely hinder their activities of daily living and they no longer tolerate exercise programs. They are requesting to proceed with total hip replacement surgery. Principal Diagnosis Left total hip replacement Discharge Exam LLE NVSI +EHL/FHL/TA/GS SILT grossly, +2 DP pulse, compartments soft NT, dr ramírez cdi. 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 The patient's symptoms have progressed to the point where it has been difficult to perform even normal activities of daily living. I indicated the patient for a left total hip arthroplasty, the risks, benefits and complications of the procedure include but not limited to infection, bleeding, damage to bone, nerves, vessels, surrounding soft tissue, may develop blood clots, loss of function, leg length discrepancy, dislocation, failure of the components, loosening of the components, the need for additional surgery and . The patient wished to proceed with surgery at this time and informed consent was obtained. Hospital Course: On 03/23/19 the patient was taken to the operating room, adequate anesthesia administered and underwent a left total hip arthroplasty. The patient tolerated the procedure well and was taken to the PACU in stable condition. Post- operatively the patient was started on a DVT ppx medication and given appropriate IV antibiotics. Consults were placed to medical hospitalist, physical therapy, occupational therapy and case management. On POD#1, the patient did well overnight and their pain was well controlled. Labs were drawn and the Hgb was 9.7. The patient progressed well with PT. On POD#2, Dressings were changed at this time and the incision was clean, dry and intact. The patient continued to progress with PT, pain well controlled, labs drawn, hgb 9.7. The patients hospital stay was relatively uneventful and they were deemed stable by the orthopedic team and consultants to be discharged to rehab facility on 03/25/19. Discharge Instructions: Upon discharge the patient may weight bear as tolerates through their operative extremity. They were instructed to keep the incision clean and dry at all times. The patient may shower but should not submerge the incision, avoid bathing, pools and hot tubes. The patient was given a script for pain medication and should take as instructed. The patient was given a script for DVT ppx Lovenox and should take as directed. The patient was instructed to not drive or travel for long distances until cleared to do so. If the patient develops any symptoms of fevers, chills, nausea, vomiting, increased redness, swelling, pain or drainage from the surgical site, they should notify the office and/or proceed to the nearest emergency room. The patient should follow up in 10-14 days after surgery for their routine post-operative follow-up appointment and should call the office to confirm the date and time. s/p L TOMMY POD#2 -ancef x 24 -DVT ppx: SCDs, TEDs, Lovenox -WBAT LLE -Posterior hip precautions -PO XR demonstrates a well aligned well fixed total hip prothesis without fracture/dislocation -am labs - hgb 9.7 -DC planning - rehab when bed available POD#1 -ancef x 24 -DVT ppx: SCDs, TEDs, Lovenox -WBAT LLE -Posterior hip precautions -PO XR demonstrates a well aligned well fixed total hip prothesis without fracture/dislocation -am labs - hgb 9.7 -DC planning Total Time Total Time Spent Total Time Spent (In Minutes): 45 minutes Discharge Plan Discharge Items Patient Disposition: Transfer Shelter Fac Reason For Visit: LEFT HIP OSTEOARTHRITIS Discharge Diagnosis: Left total hip replacement Condition on Discharge: Good Activity: Per Instructions section Lifting: Wait until after follow-up appointment Bathing: Keep incision dry Bathing Comment: No bathing, pools or hot tubs. Sexual Activity: Wait until after follow-up appointment Exercise/Sports: Wait until after follow-up appointment Driving/Machine Use: No driving Weightbearing: Full weightbearing Non-emergency contact: Primary Care Provider and Surgeon Call non-emergency contact if: you have any medication questions, your symptoms worsen, your pain is not controlled, your pain is worsening, your pain is unusual for you, your pain is concerning for you, you have a fever, your temperature is above 101, your wound has increased redness, your wound has increased drainage and your wound pain has increased Follow-up/Referrals: Shaunna West MD [Primary Care Provider] - Diet: Carb Consistent or DM2 Addtl Attending Provider Instructions: ACTIVITY RECOMMENDATIONS: SELF CARE INSTRUCTIONS AFTER TOTAL HIP REPLACEMENT Until the incision and soft tissues around your hip have healed, there is a possibility that the hip prosthesis could dislocate. A. Observe the following precautions to prevent dislocation: 1. Don't bend your hip greater than 90 degrees. 2. Avoid crossing your legs or ankles while standing or lying. 3. Sit with your feet placed 6 inches apart. 4. When sitting, keep your knees below your hips. Sit on a firm surface, avoid deep, soft chairs and couches. Use an elevated toilet seat in the bathroom. 5. Don't bend over at the waist. Use a long handled shoehorn and a sock aid to help you put on your shoes and socks. A supervisor safety deposit can help you sampler pickup objects that are too high or too low to reach. 6. Keep car riding to a minimum for at least one month after surgery. B. Your balance may be shaky for a while. Use crutches or a walker until directed by your doctor. C. Use hand rails when walking on stairs. D. Wear low heeled shoes with non-slip soles. E. Be sure that your floors are free of things that could trip you - throw rugs, electrical cords, small objects. Avoid wet and waxed floors, especially with crutches and canes. F. Try to walk several times a day with rest periods between. G. Continue with all the exercises taught to you in the hospital. Again, make walking a part of your daily routine. SPECIAL CARE INSTRUCTIONS: VERY IMPORTANT TO READ AND REVIEW A. You may still be at risk for phlebitis and blood clots. 1. Wear surgical stockings (JENNIFER hose) for 2 weeks after surgery to improve circulation and reduce swelling. 2. Take Lovenox 30mg daily for 4 weeks or as directed by your doctor. This is your blood thinner. 3. High risk patients may be prescribed a stronger blood thinner if necessary. 4. If you are on Coumadin normally, your family doctor/ship washer should monitor your blood work. Expect a phone call the day of or the day after bloodwork is drawn to adjust your dosage. B. You must take antibiotics before having dental work, bladder, bowel and other surgery. Your doctor will provide you with a permanent card to carry describing precautions. C. Call [facility] if you have a fever, redness or swelling around the incision, cloudy drainage from incision, or sudden increase in pain in your hip, not relieved by your regular pain medication. D. Please call the office at if you have any concerns or questions about your operation or recovery. * YOU MAY SHOWER, NO TUB BATHS UNTIL CLEARED BY YOUR DOCTOR. * WEAR JENNIFER HOSE 20 HOURS PER DAY FOR 2 WEEKS. * YOU SHOULD USE A WALKER OR CRUTCHES FOR 2-4 WEEKS. THIS WILL HELP PREVENT STRAIN ON YOUR HIP MUSCLE AND ALLOW IT TO HEAL PROPERLY. YOU MAY WEAN TO A CANE TOLERATED. * MOST PATIENTS WILL HAVE HOME NURSING FOR THERAPY. IF YOU DECIDE TO DO OUTPATIENT PHYSICAL THERAPY, PLEASE SCHEDULE THIS 3 TIMES PER WEEK. * Silverlon- This is a large adhesive bandage that contains silver ions. This helps your incision heal by fighting off bacteria and protecting it from the outside environment. You are permitted to shower with this dressing. This will remain on your incision for 7 days and then should be removed. Some visible blood or drainage through the dressing window is normal. If there is significant drainage or leaking noted before the 7 days notify your doctor's office immediately. Once removed, keep incision clean and dry. If there is any drainage or redness noted, please call your surgeon. . FOLLOW UP VISIT: If appointment is not already scheduled: Please call [facility] to make a follow-up appointment for 2 weeks after your surgery at . Pending Studies at Discharge: No Stand-Alone Forms: My [facility] [address] Skilled Items Patient informed of condition?: Yes DNR: No Discharge Level of Care: Skilled Communicable Disease: No Discharge Prognosis: Stable Lines: None Urinary Catheter: No Medications and DC Order Prescriptions: New hydrocodone-acetaminophen [[place]] 5-325 mg Tablet 1 - 2 tab PO Q6HWA MDD 8 tabs PRN (Reason: pain) Qty: 30 RF: 0 enoxaparin [Lovenox] 30 mg/0.3 mL Syringe 30 mg subcut Q24H 30 Days Qty: 9 RF: 0 sennosides [Senokot] 8.6 mg Tablet 17.2 mg PO HS Qty: 30 RF: 0 Continued aspirin [Lo-Dose Aspirin] 81 mg tablet,delayed release (DR/EC) 81 mg PO QAM RF: 0 Metamucil 3.4 gram/5.4 gram powder 1 tbs PO QPM RF: 0 nystatin 100,000 unit/gram powder 1 appln TOP BID PRN (Reason: Rash) RF: 0 Stool Softener 50 mg capsule 50 mg PO QPM RF: 0 metformin 500 mg tablet 500 mg PO BID Qty: 180 RF: 3 (DME) Contour Test Strips strip See Dose Instructions .ROUTE .MEDSUPPLY Qty: 100 RF: 3 mirtazapine 30 mg tablet 30 mg PO HS Qty: 30 RF: 11 buspirone 5 mg tablet 5 mg PO BID Qty: 60 RF: 5 multivitamin [Multiple Vitamins] tablet 1 tab PO QAM RF: 0 cyanocobalamin (vitamin B-12) 5,000 mcg tablet,disintegrating 5,000 mcg PO QAM RF: 0 (DME) lancets [OneTouch Delica Lancets] 33 gauge misc See Dose Instructions .ROUTE .MEDSUPPLY Qty: 100 RF: 1 sertraline 100 mg tablet 100 mg PO BID Qty: 90 RF: 1 levothyroxine 50 mcg tablet 50 mcg PO QAM RF: 0 ropinirole 2 mg tablet 2 mg PO HS RF: 0 temazepam 15 mg capsule 30 mg PO HS RF: 0 atorvastatin 10 mg tablet 10 mg PO QAM RF: 0 amlodipine 5 mg tablet 5 mg PO QAM RF: 0 pantoprazole 40 mg tablet,delayed release (DR/EC) 40 mg PO QAM RF: 0 metoprolol succinate 25 mg tablet extended release 24 hr 25 mg PO QAM RF: 0 Discontinued hydrocodone-acetaminophen 10-325 mg tablet 1 tab PO QID PRN (Reason: pain) Qty: 100 RF: 0 Discharge Orders: Discharge Order (Routine); Ordered 03/25/19 Ordered By: Mathew Chávez Admission Data Admit Date/Time: 03/23/19 09:28 Attending Provider: Abebe Yepez Admit Provider: Abebe Yepez Primary Care Provider: Shaunna West Other Providers: Lenin Roberts [place] Other Interventions: Discharge Summary Assessment (RN) Last Done: 03/25/19 13:40 DC Date/Time DO NOT enter until pt leaves facility: 03/25/19 19:13
== END 2019-03-25 19:13 | DRG 470 ==
LOC: ASU 04:55 → 3E 09:28